=== PATIENT | female | born 2000 | race Two or more races ===

== ENCOUNTER 2025-04-17 18:15 | Inpatient (IN) | payer MEDICAID, OTHER ==
[~2025-04-17] VITALS: Ht 152.4 cm; Wt 46.9 kg
[2025-04-17] MEDS ORDERED: ACETAMINOPHEN 325 MG TAB PO PRN (19:45)
[2025-04-17] MEDS ORDERED: NITROGLYCERIN 0.4 MG SL TAB SL PRN (19:45)
[2025-04-17] MEDS ORDERED: MORPHINE SULFATE INJ 2 MG/ml SYRG IV PRN (19:45)
[2025-04-17 20:45] VITALS: PULSE 77
[2025-04-17 21:00] VITALS: BP 123/78; PULSE 83; RESP 20; TEMP 97.8; O2SAT 96
[2025-04-17 21:14] LABS: Lipase 34.0 U/L (12-53)
[2025-04-17 21:16] LABS: Amylase 35.0 U/L (30-118)
--- NOTE | 2025-04-17 23:07 | DVHHP2 ---
Admitting Diagnosis: Confused mental status Severe hypovolemia Syncope Possible urinary tract infection History of Present Illness 24-year-old young [place] female previously healthy is directly admitted for further eval and management of symptom complex of syncope x2, intermittent spells Confused mental status, profound generalized weakness, hypovolemia and significant Weight loss or pure of past two weeks. As per patient and family, she was at normal state of physical and mental health Her measured body weight was 105 lbs by first week of March 2025. She was noted to be under stress as she has started resuming research and MCAT study. As a result, her oral intake of calories and fluid significantly reduced with loss of body weight 10 lbs. Over past 10 days, she was noted to have two episodes of syncope preceded by pre monitory symptoms of feeling wooziness/ ? Palpitation. No accompanying symptoms tonic-clonic seizures, tongue bite, foaming /froth at mouth. Lacerated wound injuries. She reported her anxiety/about her prospects and experiences symptoms of insomnia. While during conversation with her parents in person as well as face time, she was noted to have starring spells lasting for 30-40 secs. She appeared to this spell bound, involuntarily raising her eyeballs and eyebrows. Lately, noted to have auditory and visual hallucinations-stating, " somebody is going to kill her." She avoids watching TV shows and phone calls. Gets afraid from cell phone Ringers- getting paranoid about life-threatening scenario. She was assessed by psychologist to whom she admitted her having suicidal thoughts thoughts. Her urine analysis report at PCP office was abnormal for hematuria, microalbuminuria and severe hypovolemia (micro albumin 539 mg, specific gravity 1037) In overall assessment, she appeared to have severe anxiety mixed with major depression, Profound weakness from profound weight loss and hypovolemia as well as UTI. Considering acuity of her illness/es, I recommended hospitalization for further Cardio neuro evaluation for altered mental status, new onset of seizures Past Medical History Past medical history records: Reviewed Cardiovascular history: No prior history of congenital/rheumatic valvular heart disease Respiratory history: Upper respiratory infections Gastrointestinal history: No history of gastric reflux Genitourinary history: No prior history of UTI Endocrine history: Under weight Neurology history: No prior history of seizure or syncope Psychiatric history: No known history of depression/anxiety Past Surgical History Noncontributory Social History College student, single, 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 History of smoking Cigarettes: Never History of smoking E cigarettes: Never History of smoking marijuana: Never History of drinking alcohol: Never History of substance abuse: Never Patient Family History: Hypertension G8 MOTHER G8 FATHER Allergies: Coded Allergies: NO KNOWN ALLERGIES (Unverified , 04/17/25) Home Meds No Active Prescriptions or Reported Meds Current Medications Current Medications Medications (Trade) Dose Ordered Sig/Kanchan Route PRN Reason Start Time Stop Time Status Last Admin Nitroglycerin (Ntrostat Sublingual) 0.4 mg Q5MINP PRN SL FOR CHEST PAIN 04/17/25 19:45 Morphine Sulfate 2 mg Q30M PRN IV FOR CHEST PAIN 04/17/25 19:45 Sodium Chloride 1,000 ml @ 125 mls/hr Q8H IV 04/17/25 19:45 04/18/25 17:00 DC 04/18/25 02:44 Acetaminophen (Tylenol Tablet) 325 mg Q4HP PRN PO MILD PAIN (1-3 PAIN SCALE) 04/17/25 19:45 Pantoprazole Sodium 50 ml @ 10 mls/hr Q5H IV 04/17/25 19:45 04/18/25 00:58 DC 04/17/25 23:28 Lorazepam (Ativan Inj) 0.5 mg Q6HP PRN IV ANXIETY 04/17/25 19:45 Citalopram Hydrobromide (CeleXA TABLET) 10 mg DAILY PO 04/18/25 10:00 04/18/25 09:26 Pantoprazole Sodium 50 ml @ 10 mls/hr Q5H IV 04/17/25 23:28 04/18/25 00:59 DC Pantoprazole Sodium 50 ml @ 10 mls/hr Q5H IV 04/18/25 04:28 04/18/25 16:49 Sodium Chloride 1,000 ml @ 75 mls/hr [id number] IV 04/18/25 16:30 Review of Systems Constitutional: Reports easy tiredness, denies fever chills weight loss HEENT: Denies headache/conjunctival/ENT pains or congestion, Denies hoarse voice, hearing or visual deficit Neck: Denies cervical spine local/radicular pains, denies goiters/stridor Denies stiffness spasms, reduced ROM, RS: Denies chest congestion, cough, wheezing, SOB, pleuritic chest pains CVS: Denies angina, palpitation, SOB, edema, orthopnea, PND GI: Denies loss of appetite, abdominal pains, tenderness, N/V/D, Denies melena, GI bleeding,constipation, : Reports dysuria, Denies flank pains, frequency, hematuria, Denies passing foul odor/cloudy turbid urine, nocturia MS: Denies generalized aches/pains, back pains, spasms, stiffness, Denies radicular pains, denies generalized myalgias/muscle weakness EXTs: Denies edema, rash, open wounds, discoloration, radicular pains NEURO: Reports insomnia hypersomnolence, confused mental status,? seizures Denies focal weakness or tremors/myoclonic jerks SKIN: Denies rashes or open ulcerated wound ENDOCRINE: Denies polyuria, polydipsia, denies intolerance to heat and cold HEM/LYMPH: Denies easy tiredness, bruising, lymphadenopathy ALLERGY: Denies allergic reactions Psychiatry: Denies anxiety or depression disorder Otherwise the Review of Systems is Negative as per History & Physical Interview: Yes Vital Signs Vital Signs Date Time Temp Pulse Resp B/P (MAP) Pulse Ox O2 Delivery O2 Flow Rate FiO2 04/18/25 13:00 98.8 88 16 101/62 (75) 97 98.8 04/18/25 08:00 Room Air* 0 21 Physical Exam General appearance: Short stature, underweight slim young [place] female Appears anxious, paranoid Head: Normocephalic nontraumatic Eyes: EOMI, SU, sclera nonicteric, conjunctive- pale ENT: No congestion, NSL bilateral symmetrical, oral mucosa dry Neck: Supple, carotid upstroke +2, trachea midline, JVD-3 cm, C spine- Full ROM No thyroid or lymph node , no use of sternomastoid muscle Chest: Bilateral symmetrical expansions, No costochondral tenderness Breasts: I exam - Bilateral symmetrical, Pexam - deferred Lungs: clear breath sounds all over except reduced at bases CVS: PMI- cm medial to L MCL in fifth ICS , S1- S2 NSR no S3 GI: Abdomen soft, obese, bowel sounds normoactive No focal tenderness, no rebound tenderness No hepatosplenomegaly, no mass no hernia , : No CVA tenderness, no bladder mass palpable, genitalia-NE SKIN: Turgor normal, color pink, no rash, no icterus, No varicosity, no ulcers or wounds EXTs: No edema, color pink, no rash, no ecchymosis distal pulses +2 capillary refill <2 seconds, No open wounds JOINTS; full range of motion BACK: No apparent lumbosacral spinal muscle tenderness, LYMPH NODES: No cervical, axillary or inguinal lymph nodes Neuro: Awake alert oriented 4, coherent, all cognitives- intact No pronator drift, no focal motor deficit, No focal sensory deficit, DTR +2, gait steady PSYCH: Affect mildly depressed-denies suicidal ideation SEPSIS Sepsis Screen Physician Orders Admit (04/17/25 19:45) Nitroglycerin Sublingual (Ntrostat Subli (04/17/25 19:45) Morphine Sulfate Injection (04/17/25 19:45) Stat Ekg For Chest Pain (04/17/25 19:45) Notify Md Of Changes From Base (04/17/25 19:45) Planning Advisor For 24 Hours (04/17/25 19:45) Emergency Dysrhythmia Protocol (04/17/25 19:45) Rhythm Strips Once Every Shift (04/17/25 19:45) Oxygen By Nasal Cannula (04/17/25 19:45) Full Code (04/17/25 19:45) Cardiac Diet-2gna,Lofat,Lochol (04/18/25 Breakfast) * Neurology Consult (04/17/25 19:45) * Psychiatric Consult (04/17/25 19:45) Acetaminophen Tablet (Tylenol Tablet) (04/17/25 19:45) Lorazepam 2mg/Ml Inj (Ativan Inj) (04/17/25 19:45) Urine Bacterial Culture (04/17/25 20:04) Blood Culture (04/17/25 20:04) Citalopram Tablet (Celexa Tablet) (04/18/25 10:00) Eeg Awake/Sleep/Act (04/17/25 23:05) Pantoprazole 40mg/50ml Ns Ae (Protonix) (04/18/25 04:28) Ct Head W Wo Contrast (04/18/25 09:00) Sod Chl 0.45% (Sodium Chloride 0.45% Via (04/18/25 16:30) Echo 2d Mode Cardiac Dop (04/18/25 16:24) Basic Metabolic Panel (04/19/25 07:00) Vital Signs Date Time Temp Pulse Resp B/P (MAP) Pulse Ox O2 Delivery O2 Flow Rate FiO2 04/18/25 13:00 98.8 88 16 101/62 (75) 97 98.8 04/18/25 09:00 97.9 90 18 103/70 (81) 96 97.9 04/18/25 08:00 90 18 0 Room Air* 0 21 04/18/25 01:00 97.8 87 20 121/79 (93) 96 97.8 04/17/25 21:00 97.8 83 20 123/78 (93) 96 97.8 04/17/25 20:45 77 Room Air* 0 21 Laboratory Tests Test 04/18/25 05:35 White Blood Count 7.1 10^3/uL (4.4-10.8) Medications Medications Dose Ordered Sig/Kanchan Route Start Time Stop Time Status Last Admin Dose Admin Citalopram Hydrobromide 10 mg DAILY PO 04/18/25 10:00 04/18/25 09:26 Results Labs Test 04/18/25 05:35 04/18/25 01:49 04/17/25 20:47 Range/Units White Blood Count 7.1 4.4-10.8 10^3/uL Red Blood Count 4.65 4.0-5.20 10^6/uL Hemoglobin 13.6 12.2-16.2 g/dL Hematocrit 39.0 36.0-46.0 % Mean Corpuscular Volume 83.9 80.0-100.0 fL Mean Corpuscular Hemoglobin 29.3 28.0-32.0 pg Mean Corpuscular Hemoglobin Concent 35.0 32.0-36.0 g/dL Red Cell Distribution Width 12.5 11.8-14.3 % Platelet Count 282 140-450 10^3/uL Mean Platelet Volume 7.3 6.9-10.8 fL Neutrophils (%) (Auto) 56.7 37.0-80.0 % Lymphocytes (%) (Auto) 34.0 10.0-50.0 % Monocytes (%) (Auto) 7.6 0.0-12.0 % Eosinophils (%) (Auto) 1.0 0.0-7.0 % Basophils (%) (Auto) 0.7 0.0-2.0 % Neutrophils # (Auto) 4.0 1.6-8.6 10 ^3/uL Lymphocytes # (Auto) 2.4 0.4-5.4 10 ^3/uL Monocytes # (Auto) 0.5 0-1.3 10 ^3/uL Eosinophils # (Auto) 0.1 0-0.8 10 ^3/uL Basophils # (Auto) 0 0-0.2 10 ^3/uL Nucleated Red Blood Cells 0.1 % Sodium Level 139 136-145 mmol/L Potassium Level 3.8 3.5-5.1 mmol/L Chloride Level 105 98-107 mmol/L Carbon Dioxide Level 25 20-31 mmol/L Anion Gap 9 5-15 Blood Urea Nitrogen 6 L 9-23 mg/dL Creatinine 0.78 0.550-1.02 mg/dL Glomerular Filtration Rate Calc 110 >90 mL/min BUN/Creatinine Ratio 7.7 L 10.0-20.0 Serum Glucose 90 74-106 mg/dL Calcium Level 8.9 8.7-10.4 mg/dL Total Bilirubin 0.6 0.2-1.0 mg/dL Aspartate Amino Transferase (AST) 16 13-40 U/L Alanine Aminotransferase (ALT) 12 7-40 U/L Alkaline Phosphatase 60 46-116 U/L Total Protein 6.7 5.7-8.2 g/dL Albumin 4.2 3.2-4.8 g/dL Urine Color Colorless Yellow Urine Clarity Clear Clear Urine pH 6.0 5.0-9.0 Urine Specific [place] 1.005 1.001-1.035 Urine Protein Negative Negative Urine Ketones Negative Negative Urine Blood Negative Negative /uL Urine Nitrite Negative Negative Urine Bilirubin Negative Negative Urine Urobilinogen Normal Negative mg/dL Urine Leukocyte Esterase Negative Negative /uL Urine RBC None seen 0 - 4 /hpf Urine Microscopic WBC < 1 0-5 /HPF Urine Squamous Epithelial Cells Few <5 /hpf Urine Bacteria None seen None Seen /hpf Urine Glucose Normal Normal mg/dL Urine Test Negative Negative Urine Opiates Screen Neg NEGATIVE Urine Fentanyl Screen Neg NEGATIVE Urine Barbiturates Screen Neg NEGATIVE Urine Phencyclidine Screen Neg NEGATIVE Urine Amphetamines Screen Neg NEGATIVE Urine Benzodiazepines Screen Neg NEGATIVE Urine Cocaine Screen Neg NEGATIVE Urine Cannabinoids Screen Neg NEGATIVE Phosphorus Level 3.4 2.4-5.1 mg/dL Magnesium Level 2.2 1.6-2.6 mg/dL Ammonia 12 11-32 umol/L C-Reactive Protein High Sensitivity 0.02 <1.0 mg/dL Amylase Level 35 30-118 U/L Lipase 34 12-53 U/L Vitamin B12 Level 538 211-911 pg/mL Folic Acid 14.42 >5.38 ng/mL Thyroid Stimulating Hormone (TSH) 1.53 0.55-4.78 uIU/mL Admitting Diagnosis: Syncope a. Severe hypovolemia b. Rule out valvular heart disease Major depression with severe anxiety Profound generalized weakness from a. Severe hypovolemia Suspect new onset of absence seizures Acute gastritis Possible Urinary tract infection Plan Admit to telemetry IV hydration IV lorazepam IV Protonix Celexa Psychiatric consult Neurology consult MISTY LAZCANO MD Apr 17, 2025 23:07
[2025-04-17] MEDS: SODIUM PHOSPHATES 20 MEQ in SODIUM CHL 0.9% 100 ML IV ONE (23:15)
[2025-04-17] MEDS: PANTOPRAZOLE 40mg/50ML NS AE 50 ML IV SCH (23:28)
[2025-04-17] MEDS ORDERED: PANTOPRAZOLE 40mg/50ML NS AE 50 ML IV SCH (23:28)
[2025-04-17] MEDS: LORazepam 2MG/ML-1ML VIAL IV ONE (23:29)
[2025-04-18] VITALS (7 sets, daily range): BP systolic 101–121; BP diastolic 62–81; PULSE 82–100; RESP 14–20; TEMP 97.8–99.1; O2SAT 0–97
[2025-04-18 00:05] LABS: Alanine Aminotransferase 12 U/L (7-40); Albumin 4.5 g/dL (3.2-4.8); Alkaline Phosphatase 65 U/L (46-116); Anion Gap 10 (5-15); BUN/Creatinine Ratio 8.2 (10.0-20.0); Bilirubin, Total 0.3 mg/dL (0.2-1.0); Calcium 9.2 mg/dL (8.7-10.4); Carbon Dioxide 22 mmol/L (20-31); Chloride 105 mmol/L (98-107); Glucose 95 mg/dL (74-106); Potassium 3.9 mmol/L (3.5-5.1); Sodium 137 mmol/L (136-145); Total Protein 7.2 g/dL (5.7-8.2)
[2025-04-18 00:06] LABS: Blood Urea Nitrogen 6 mg/dL (9-23)
[2025-04-18] MEDS: SOD CHL 0.45% 1,000 ML IV SCH ×2 (02:44→16:30)
[2025-04-18 02:45] LABS: Urine Protein, UAD Negative (Negative)
[2025-04-18 03:04] LABS: Amphetamine Screen, Urine Neg (NEGATIVE); Barbiturate Scree,Urine Neg (NEGATIVE); Benzodiazephine Screen, Urine Neg (NEGATIVE); Cannabinoid Screen, Urine Neg (NEGATIVE); Cocaine Screen, Urine Neg (NEGATIVE); Opiate Scree,Urine Neg (NEGATIVE); Phencyclidine Screen, Urine Neg (NEGATIVE)
[2025-04-18] MEDS: PANTOPRAZOLE 40mg/50ML NS AE 50 ML IV SCH (04:22)
[2025-04-18 06:47] LABS: Hematocrit 39.0 % (36.0-46.0); Hemoglobin 13.6 g/dL (12.2-16.2); Mean Corpuscular Hemoglobin 29.3 pg (28.0-32.0); Mean Corpuscular Volume 83.9 fL (80.0-100.0); Nucleated Red Blood Cells % 0.1 %
[2025-04-18 07:07] LABS: Alanine Aminotransferase 12 U/L (7-40); Albumin 4.2 g/dL (3.2-4.8); Alkaline Phosphatase 60 U/L (46-116); Anion Gap 9 (5-15); BUN/Creatinine Ratio 7.7 (10.0-20.0); Bilirubin, Total 0.6 mg/dL (0.2-1.0); Calcium 8.9 mg/dL (8.7-10.4); Carbon Dioxide 25 mmol/L (20-31); Chloride 105 mmol/L (98-107); Glucose 90 mg/dL (74-106); Potassium 3.8 mmol/L (3.5-5.1); Sodium 139 mmol/L (136-145); Total Protein 6.7 g/dL (5.7-8.2)
[2025-04-18 07:14] LABS: Blood Urea Nitrogen 6 mg/dL (9-23)
[2025-04-18] MEDS: CITALOPRAM HYDROBR 20 MG TAB PO SCH (09:26)
[2025-04-18] MEDS ORDERED: IOHEXOL 300 MG/ML 100ML BOTTLE IJ ONE (12:12)
--- NOTE | 2025-04-18 12:55 | DVH ---
EXAM: CT HEAD W WO CONTRAST INDICATION: AMS MASS OR TUMOR TECHNIQUE: CT of the head without intravenous contrast. Radiation Dose Information: CT Dose: CTDI volume is 54.45 mGy. Dose-length product is 1708.16 mGy*cm The dose indicators for CT are the volume Computed Tomography (CT) Dose Index (CTDIvol) and the Dose Length Product (DLP), and are measured in units of mGy and mGy-cm, respectively. These indicators are not patient dose, but values generated from the CT scanner acquisition factors. The report includes radiation exposure data for exposures received during this examination. COMPARISON: None FINDINGS: There is no evidence of acute intracranial hemorrhage, extra-axial collection, mass effect, midline s hift, herniation or hydrocephalus. The ventricles, sulci and cisterns are age appropriate. The dasilva-white differentiation is intact. Patchy periventricular and subcortical white matter hypoattenuation is nonspecific but may be related to small vessel ischemic disease. The visualized paranasal sinuses and mastoid air cells are clear. The surrounding soft tissues and osseous structures are unremarkable. IMPRESSION: No acute intracranial abnormality.
--- NOTE | 2025-04-18 18:11 | DVHPN2 ---
Progress Note - Dictate Date Seen: Apr 18, 2025 Subjective The patient is currently being evaluated and treated for intermittent spells of confusion mental status, syncope and hypovolemia * Apparently patient had 1-2 episode of staring spell last night as well as One more episode this morning. She feels well rested in last 24 hours Her oral intake of calorie and fluids has slightly improved She appears more awake alert oriented x3, feels relatively more comfortable And interactive. Her father reports her to have auditory hallucinations this morning * Patient received CT head with contrast-rules out mass seizures * She received EEG results of which is pending * She is awaiting to receive neurology consult * Also discussed with tele psychiatrist vital signs Vital Sign Date Time Temp Pulse Resp B/P (MAP) Pulse Ox O2 Delivery O2 Flow Rate FiO2 04/18/25 13:00 98.8 88 16 101/62 (75) 97 98.8 04/18/25 08:00 Room Air* 0 21 medications Current Medications Medications Dose Ordered Sig/Kanchan Route Start Time Stop Time Status Last Admin Dose Admin Nitroglycerin 0.4 mg Q5MINP PRN SL 04/17/25 19:45 Morphine Sulfate 2 mg Q30M PRN IV 04/17/25 19:45 Acetaminophen 325 mg Q4HP PRN PO 04/17/25 19:45 Lorazepam 0.5 mg Q6HP PRN IV 04/17/25 19:45 Citalopram Hydrobromide 10 mg DAILY PO 04/18/25 10:00 04/18/25 09:26 Pantoprazole Sodium 50 ml @ 10 mls/hr Q5H IV 04/18/25 04:28 04/18/25 16:49 Sodium Chloride 1,000 ml @ 75 mls/hr [id number] IV 04/18/25 16:30 laboratory and microbiology Laboratory Tests 04/18/25 05:35 Test 04/18/25 05:35 Range/Units Serum Glucose 90 74-106 mg/dL Problem List 1. Confused mental status a. Severe anxiety mixed with depression 2. Severe hypovolemia and profound generalized weakness 3. Syncope 4. Acute gastritis Assessment/Plan IV fluids IV Protonix Celexa 10 mg p.o. daily Lorazepam 0.5 mg slow IV push q.6 hours p.r.n. severe anxiety VTE precautions Update patient The patient and/or family is well informed by me about 1. Clinical impression, treatment plans, side effects of medications, course of the disease and prognosis 2. All patient's question/ concerns raised by patient are satisfactorily addressed by me Total time spent 45 minutes 40% of time spent interviewing the patient and physical exam 30% of time spent in gathering lab datas and imaging studies 30 % of time is spent in patient education MISTY LAZCANO MD Apr 18, 2025 18:11
--- NOTE | 2025-04-18 20:16 | DVHINCON2 ---
Date of service: Apr 18, [address] Fay Reason for Consultation AMS History of Present Illness Ms. Fowler is a 24 years old right-handed female otherwise healthy, the patient was admitted to the [facility] on 04/17/2025 with a chief complaint of syncopal event. At this time, she is alert, oriented x3, but is a poor historian, most of the history was obtained from her father, I have also reviewed chart and talked to her nurse After graduating from her college in December 2024, the patient was working on her MCAT for medical school, but meanwhile she was involved in the research project where she had problem with the team, and he was over home and stressed out. On 04/10/25, when she was standing, she developed dizziness/lightheadedness, hot flash, blurry vision, nausea, chest pain, she fell down and passed out for 15-20 seconds, on waking up, she had nausea in the lot of sweating, he recognize the place, and what she was going on before she passed out, but she had difficulty to recognize people around her On 04/11/2025, when she resting in bed (she [place] and she stayed with her uncle), she demanded seeing her parents, and her parents started to this time with her, and during the face timing, without dizziness any other warning symptoms, the patient suddenly pass out with eyes open, nonresponsiveness for about 10-15 seconds, she suddenly woke up, was able to recognize people, the place and what was going on Recently she has lost 10 chino, but she claimed she had good appetite Tele psych consultation attempted on 04/18/25, but the patient did not talked to the doctor Urinalysis, 04/18/2025: Unremarkable Urine tests, 04/18/2025: Negative UDS, 04/18/2025: Negative CBC, 04/18/2025: Unremarkable CMP, 04/18/2025: Unremarkable Vitamin B12, 04/17/2025: 538 Folic acid, 04/17/2025: 14.42 TSH, 04/17/2025: 1.53 CT head, 04/18/2025: No acute intracranial abnormality. Past Medical History No anxiety, depression or other major medical problems Past Surgical History None Family History: Hypertension G8 MOTHER G8 FATHER Family History Hypertension, coronary artery disease, heart attack, stroke, no anxiety, no depression Social History She denies a history of tobacco smoking, drug/alcohol abuse Allergies: Coded Allergies: NO KNOWN ALLERGIES (Unverified , 04/17/25) Home Meds No Active Prescriptions or Reported Meds Current Medications Current Medications Medications (Trade) Dose Ordered Sig/Kanchan Route PRN Reason Start Time Stop Time Status Last Admin Citalopram Hydrobromide (CeleXA TABLET) 10 mg DAILY PO 04/18/25 10:00 04/18/25 09:26 Pantoprazole Sodium 50 ml @ 10 mls/hr Q5H IV 04/17/25 23:28 04/18/25 00:59 DC Pantoprazole Sodium 50 ml @ 10 mls/hr Q5H IV 04/18/25 04:28 04/18/25 16:49 Sodium Chloride 1,000 ml @ 75 mls/hr [id number] IV 04/18/25 16:30 04/18/25 16:30 Review of Systems As above, the other systems are negative Vital Signs Vital Signs Date Time Temp Pulse Resp B/P (MAP) Pulse Ox O2 Delivery O2 Flow Rate FiO2 04/18/25 17:00 99.1 82 14 114/81 (92) 97 99.1 04/18/25 08:00 Room Air* 0 21 Physical Exam GENERAL EXAM: General: the patient is well developed and nourished. No acute distress. HEENT: Normocephalic, neck is supple, no carotid bruits. No mass. RESPIRATORY: Normal respiratory effort with symmetrical lung expansion. Lungs clear to auscultation. CARDIOVASCULAR: Regular rate and rhythm with no murmurs. S1, S2. ABDOMEN: Soft, nontender, normal bowel sound NEUROLOGICAL: MENTAL STATUS: Awake and alert. Oriented to person, place, time SPEECH, LANGUAGE, HIGHER CORTICAL FUNCTION: no aphasia or dysathria. CRANIAL NERVES: #2: Intact visual blackburn to confrontation. The optic discs were sharp #3,4,6: Pupils are equal, round and reactive. EOMs full and conjugate. No nystagmus. #5: Facial sensation intact in all three divisions bilaterally. Mandibular strength intact. #7: Facial muscles symmetrical and strength intact. #8: Hearing grossly normal to voice. #9,10: Uvula and soft palate rise in the midline. Swallow and voice are normal. #11: Trapezius and sternomastoid strength intact bilaterally. #12: Tongue midline. No fasciculations or atrophy. SENSATION: Sensation to touch and pinprick is normal. MOTOR: Normal tone in the upper and lower extremity. Normal muscle bulk. No fasciculations. No abnormal movements or posturing. Muscle strength of the major groups in the upper extremities is 5/5. Muscle strength of the major groups in the lower extremities is 5/5. REFLEXES: Deep tendon reflexes normal and symmetrical. No pathological reflexes. CEREBELLAR/COORDINATION: Finger to nose and heel to matthew are normal bilaterally. GAIT/STATION: deferred Labs/Diagnostic Data Labs Test 04/18/25 05:35 04/18/25 01:49 04/17/25 20:47 Range/Units White Blood Count 7.1 4.4-10.8 10^3/uL Red Blood Count 4.65 4.0-5.20 10^6/uL Hemoglobin 13.6 12.2-16.2 g/dL Hematocrit 39.0 36.0-46.0 % Mean Corpuscular Volume 83.9 80.0-100.0 fL Mean Corpuscular Hemoglobin 29.3 28.0-32.0 pg Mean Corpuscular Hemoglobin Concent 35.0 32.0-36.0 g/dL Red Cell Distribution Width 12.5 11.8-14.3 % Platelet Count 282 140-450 10^3/uL Mean Platelet Volume 7.3 6.9-10.8 fL Neutrophils (%) (Auto) 56.7 37.0-80.0 % Lymphocytes (%) (Auto) 34.0 10.0-50.0 % Monocytes (%) (Auto) 7.6 0.0-12.0 % Eosinophils (%) (Auto) 1.0 0.0-7.0 % Basophils (%) (Auto) 0.7 0.0-2.0 % Neutrophils # (Auto) 4.0 1.6-8.6 10 ^3/uL Lymphocytes # (Auto) 2.4 0.4-5.4 10 ^3/uL Monocytes # (Auto) 0.5 0-1.3 10 ^3/uL Eosinophils # (Auto) 0.1 0-0.8 10 ^3/uL Basophils # (Auto) 0 0-0.2 10 ^3/uL Nucleated Red Blood Cells 0.1 % Sodium Level 139 136-145 mmol/L Potassium Level 3.8 3.5-5.1 mmol/L Chloride Level 105 98-107 mmol/L Carbon Dioxide Level 25 20-31 mmol/L Anion Gap 9 5-15 Blood Urea Nitrogen 6 L 9-23 mg/dL Creatinine 0.78 0.550-1.02 mg/dL Glomerular Filtration Rate Calc 110 >90 mL/min BUN/Creatinine Ratio 7.7 L 10.0-20.0 Serum Glucose 90 74-106 mg/dL Calcium Level 8.9 8.7-10.4 mg/dL Total Bilirubin 0.6 0.2-1.0 mg/dL Aspartate Amino Transferase (AST) 16 13-40 U/L Alanine Aminotransferase (ALT) 12 7-40 U/L Alkaline Phosphatase 60 46-116 U/L Total Protein 6.7 5.7-8.2 g/dL Albumin 4.2 3.2-4.8 g/dL Urine Color Colorless Yellow Urine Clarity Clear Clear Urine pH 6.0 5.0-9.0 Urine Specific [place] 1.005 1.001-1.035 Urine Protein Negative Negative Urine Ketones Negative Negative Urine Blood Negative Negative /uL Urine Nitrite Negative Negative Urine Bilirubin Negative Negative Urine Urobilinogen Normal Negative mg/dL Urine Leukocyte Esterase Negative Negative /uL Urine RBC None seen 0 - 4 /hpf Urine Microscopic WBC < 1 0-5 /HPF Urine Squamous Epithelial Cells Few <5 /hpf Urine Bacteria None seen None Seen /hpf Urine Glucose Normal Normal mg/dL Urine Test Negative Negative Urine Opiates Screen Neg NEGATIVE Urine Fentanyl Screen Neg NEGATIVE Urine Barbiturates Screen Neg NEGATIVE Urine Phencyclidine Screen Neg NEGATIVE Urine Amphetamines Screen Neg NEGATIVE Urine Benzodiazepines Screen Neg NEGATIVE Urine Cocaine Screen Neg NEGATIVE Urine Cannabinoids Screen Neg NEGATIVE Phosphorus Level 3.4 2.4-5.1 mg/dL Magnesium Level 2.2 1.6-2.6 mg/dL Ammonia 12 11-32 umol/L C-Reactive Protein High Sensitivity 0.02 <1.0 mg/dL Amylase Level 35 30-118 U/L Lipase 34 12-53 U/L Vitamin B12 Level 538 211-911 pg/mL Folic Acid 14.42 >5.38 ng/mL Thyroid Stimulating Hormone (TSH) 1.53 0.55-4.78 uIU/mL Assessment Passing out event Syncope Rule out partial complex seizure, less likely Anxiety Plan/Recommendation Monitoring Supportive treatment Telemetry EEG reports MR brain scan Citalopram 10 mg daily Ativan p.r.n. for anxiety attack More recommendation per clinical course Prognosis: Poor This medical document was created using an electronic medical record system with [employer] dictation system. Although this document has been carefully reviewed, there may still be some phonetic and typographical errors. These areas are purely typographical due to imperfections of the software programs, and do not reflect any compromise in the patient's medical care. Plan discussed with: Patient, Other LAURIE JENKINS MD Apr 18, 2025 20:16
[2025-04-18] MEDS: LORazepam 2MG/ML-1ML VIAL IV PRN (22:54)
[2025-04-19] VITALS (7 sets, daily range): BP systolic 104–116; BP diastolic 66–82; PULSE 79–95; RESP 17–20; TEMP 98.7–99.6; O2SAT 0–100
--- NOTE | 2025-04-19 04:05 | DVHINCON2 ---
Date of Service if different f: Apr 18, 2025 Time of Service: 18:00 Consultation ([facility]) Consulting Physician: KELLY MUNOZ MD Labs Laboratory Tests Test 04/17/25 20:47 04/18/25 01:49 04/18/25 05:35 Phosphorus Level 3.4 mg/dL (2.4-5.1) Magnesium Level 2.2 mg/dL (1.6-2.6) Ammonia 12 umol/L (11-32) C-Reactive Protein High Sensitivity 0.02 mg/dL (<1.0) Amylase Level 35 U/L (30-118) Lipase 34 U/L (12-53) Vitamin B12 Level 538 pg/mL (211-911) Folic Acid (LAB) 14.42 ng/mL (>5.38) Thyroid Stimulating Hormone (TSH) 1.53 uIU/mL (0.55-4.78) Urine Color Colorless (Yellow) Urine Clarity Clear (Clear) Urine pH 6.0 (5.0-9.0) Urine Specific [place] 1.005 (1.001-1.035) Urine Protein Negative (Negative) Urine Ketones Negative (Negative) Urine Blood Negative /uL (Negative) Urine Nitrite Negative (Negative) Urine Bilirubin Negative (Negative) Urine Urobilinogen Normal mg/dL (Negative) Urine Leukocyte Esterase Negative /uL (Negative) Urine RBC None seen /hpf (0 - 4) Urine Microscopic WBC < 1 /HPF (0-5) Urine Squamous Epithelial Cells Few /hpf (<5) Urine Bacteria None seen /hpf (None Seen) Urine Glucose Normal mg/dL (Normal) Urine Test Negative (Negative) Urine Opiates Screen Neg (NEGATIVE) Urine Fentanyl Screen Neg (NEGATIVE) Urine Barbiturates Screen Neg (NEGATIVE) Urine Phencyclidine Screen Neg (NEGATIVE) Urine Amphetamines Screen Neg (NEGATIVE) Urine Benzodiazepines Screen Neg (NEGATIVE) Urine Cocaine Screen Neg (NEGATIVE) Urine Cannabinoids Screen Neg (NEGATIVE) White Blood Count 7.1 10^3/uL (4.4-10.8) Red Blood Count 4.65 10^6/uL (4.0-5.20) Hemoglobin 13.6 g/dL (12.2-16.2) Hematocrit 39.0 % (36.0-46.0) Mean Corpuscular Volume 83.9 fL (80.0-100.0) Mean Corpuscular Hemoglobin 29.3 pg (28.0-32.0) Mean Corpuscular Hemoglobin Concent 35.0 g/dL (32.0-36.0) Red Cell Distribution Width 12.5 % (11.8-14.3) Platelet Count 282 10^3/uL (140-450) Mean Platelet Volume 7.3 fL (6.9-10.8) Neutrophils (%) (Auto) 56.7 % (37.0-80.0) Lymphocytes (%) (Auto) 34.0 % (10.0-50.0) Monocytes (%) (Auto) 7.6 % (0.0-12.0) Eosinophils (%) (Auto) 1.0 % (0.0-7.0) Basophils (%) (Auto) 0.7 % (0.0-2.0) Neutrophils # (Auto) 4.0 10 ^3/uL (1.6-8.6) Lymphocytes # (Auto) 2.4 10 ^3/uL (0.4-5.4) Monocytes # (Auto) 0.5 10 ^3/uL (0-1.3) Eosinophils # (Auto) 0.1 10 ^3/uL (0-0.8) Basophils # (Auto) 0 10 ^3/uL (0-0.2) Nucleated Red Blood Cells 0.1 % Sodium Level 139 mmol/L (136-145) Potassium Level 3.8 mmol/L (3.5-5.1) Chloride Level 105 mmol/L (98-107) Carbon Dioxide Level 25 mmol/L (20-31) Anion Gap 9 (5-15) Blood Urea Nitrogen 6 mg/dL (9-23) Creatinine 0.78 mg/dL (0.550-1.02) Glomerular Filtration Rate Calc 110 mL/min (>90) BUN/Creatinine Ratio 7.7 (10.0-20.0) Serum Glucose 90 mg/dL (74-106) Calcium Level 8.9 mg/dL (8.7-10.4) Total Bilirubin 0.6 mg/dL (0.2-1.0) Aspartate Amino Transf (AST/SGOT) 16 U/L (13-40) Alanine Aminotransferase (ALT/SGPT) 12 U/L (7-40) Alkaline Phosphatase 60 U/L (46-116) Total Protein 6.7 g/dL (5.7-8.2) Albumin 4.2 g/dL (3.2-4.8) Microbiology Date/Time Source Procedure Growth Status 04/17/25 20:46 Blood Blood Culture - Preliminary NO GROWTH AFTER 24 HOURS OF INCUBATION. Resulted Vitals Vital Signs Date Time Temp Pulse Resp B/P (MAP) Pulse Ox O2 Delivery O2 Flow Rate FiO2 04/18/25 21:00 97.9 91 18 109/78 (88) 97 97.9 04/18/25 20:00 Room Air* 0 21 Current medications Current Medications Medications Dose Ordered Sig/Kanchan Route Start Time Stop Time Status Last Admin Dose Admin Nitroglycerin 0.4 mg Q5MINP PRN SL 04/17/25 19:45 Morphine Sulfate 2 mg Q30M PRN IV 04/17/25 19:45 Acetaminophen 325 mg Q4HP PRN PO 04/17/25 19:45 Lorazepam 0.5 mg Q6HP PRN IV 04/17/25 19:45 04/18/25 22:54 0.5 MG Citalopram Hydrobromide 10 mg DAILY PO 04/18/25 10:00 04/18/25 09:26 10 MG Pantoprazole Sodium 50 ml @ 10 mls/hr Q5H IV 04/18/25 04:28 04/19/25 03:17 10 MLS/HR Sodium Chloride 1,000 ml @ 75 mls/hr [id number] IV 04/18/25 16:30 04/18/25 16:30 75 MLS/HR Lorazepam 1 mg ONCE PRN IV 04/18/25 21:00 PSYCHIATRY CONSULTATION INITIAL EVALUATION REASON FOR CONSULT: Severe anxiety HPI: Patient is a young woman admitted for evaluation of severe anxiety and abnormal behaviors. She is alert and oriented to person, place, date, and reason for hospitalization, though she provides limited detail about her condition. She reports longstanding anxiety and states she has not been feeling well. 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 Collateral information from her uncle indicates she had been living in [place] preparing for medical school entrance exams and was under significant stress. Over the past week, she experienced behavioral changes, including withdrawal and difficulty communicating. 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 Since admission, she has exhibited staring spells and reduced responsiveness. Yesterday she was largely withdrawn and only able to give brief, one-word responses. Today she continues to appear slowed with episodes of staring and dry heaving throughout the exam. She slept well last night after receiving Ativan, and her father estimates her condition has improved by about 70% since hospitalization. Workup thus far includes a normal CT head; EEG has been obtained but not yet read. Neurology consultation is pending. Patient denies suicidal ideation, homicidal ideation, or access to firearms. She denies substance use; UDS and BAL were negative. PSYCHIATRIC HISTORY: DIAGNOSIS: None prior ADMISSIONS: None prior MEDICATION TRIALS: None prior OUTPATIENT CARE: None prior THERAPY: None prior SI/SELF-INJURY/SUICIDE ATTEMPT: Per above. SUBSTANCE USE: No use of drugs or alcohol. UDS and BAL negative. RELEVANT MEDICAL HISTORY: No chronic conditions. 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 At times, she appears to be staring blankly into space. She demonstrates episodes of dry heaving throughout the interview. Affect is blunted overall, though she intermittently shows a wider range and smiles occasionally. Speech is markedly impoverished, requiring repeated prompting to respond, with increased latency in answering questions. Mood is described only as anxious. Thought processes are difficult to assess due to limited speech but appear goal-directed when she does respond. She denies hallucinations or delusions. She is alert and oriented to person, place, time, and situation. Insight is limited, judgment is fair, and impulse control is fair. DIFFERENTIAL DIAGNOSIS: Catatonia (given staring, motor slowing, decreased speech, improved with Ativan) Major depressive episode with catatonic features Severe anxiety disorder with functional impairment Psychotic spectrum illness (early or attenuated presentation) Neurologic disorder (seizure, postictal state, other organic etiology) Delirium (though orientation intact and course subacute) ASSESSMENT: This is a young woman with no prior psychiatric history presenting with acute behavioral changes, anxiety, withdrawal, and catatonic-like features. Symptoms include staring spells, motor slowing, dry heaving, impoverished speech, and increased latency. She has shown partial improvement with Ativan, suggesting possible catatonia. Given her limited ability to care for herself and markedly impaired functioning, she currently meets criteria for grave disability. Given the acuity of presentation, limited insight, and impaired ability to engage in outpatient care safely, involuntary psychiatric hospitalization is indicated for further evaluation and treatment. Continued medical workup, including neurology consultation, remains essential to rule out underlying neurologic or metabolic contributors. RECOMMENDATIONS: 1. Legal - Initiate 5150 hold for grave disability. - Place patient on 1799 hold until 5150 can be completed by [facility]-designated staff (valid for 24 hours, renewable for another 24 hours). 2. Disposition - Transfer to inpatient psychiatry for further evaluation and management once medically cleared. 3. Medications - Continue standing Ativan (given improvement with benzodiazepine trial). - Defer initiation or resumption of other psychotropic medications at this time pending further psychiatric evaluation. 4. Medical Considerations - Complete medical workup to rule out contributory conditions. - Neurology consultation recommended (evaluate for seizure disorder, abnormal movements, or other neurologic contributors). - Review EEG results once available. 5. Other - Continue close observation for safety. - Provide support to family and ongoing communication regarding plan of care. - Once patient is discharged from inpatient psychiatry, she should initiate outpatient mental health care including psychotherapy. KELLY MUNOZ MD Apr 19, 2025 04:05
[2025-04-19 06:52] LABS: Anion Gap 7 (5-15); Carbon Dioxide 26 mmol/L (20-31); Chloride 107 mmol/L (98-107); Potassium 4.1 mmol/L (3.5-5.1); Sodium 140 mmol/L (136-145)
[2025-04-19 06:54] LABS: Calcium 9.2 mg/dL (8.7-10.4)
[2025-04-19 06:58] LABS: BUN/Creatinine Ratio 9.3 (10.0-20.0); Glucose 90 mg/dL (74-106)
[2025-04-19 07:00] LABS: Blood Urea Nitrogen 8 mg/dL (9-23)
[2025-04-19] MEDS: LORazepam 2MG/ML-1ML VIAL IV PRN (14:11)
--- NOTE | 2025-04-19 15:07 | DVHSR ---
APPROVED REPORT EXAM: Two-dimensional and M-mode echocardiogram with Doppler and color Doppler. Blood Pressure: 116/82 mmHg INDICATION Syncope R/O MVP RISK FACTORS Height: 5' , Weight: 104 DIMENSIONS LVDd4.1 (3.8-5.7cm)LA (2D)2.6 (1.9-4.0cm)Aortic Root2.3 (2.0-3.7cm) LVDs2.5 (2.5-4.0cm)LA (MM) (1.9-4.0cm)Aortic Cusp Exc1.4 (1.5-2.0cm) EF (%) 70.0 (55-70%)Rt. Atrium2.7 (1.9-4.0cm)Asc. Aorta cm IVSd0.6 (0.7-1.1cm)RV (D) (1.8-2.4cm) PWd0.6 (0.7-1.1cm) Mitral Valve MitralMitral Stenosis E wave0.90m/sMV Mean GR.mmHg A wave0.70m/sMV Peak GR.mmHg E/A ratio1.32D MVAcm2 Aortic Valve Aortic ValveAortic Stenosis V10.80m/Meredith Mean GR.3mmHg V21.20m/Meredith Peak GR.7mmHg LVOT Diameter1.6 (1.8-2.4cm)Doppler AVA1.34cm2 Pulmonic Valve V20.70m/s Conclusion Sinus rhythm. Normal chamber sizes. Valves are normal. Left ventricular function is preserved at 60% with normal RV function. No Doppler anomalies. No pericardial effusion masses or vegetations.
--- NOTE | 2025-04-19 23:32 | DVHPN2 ---
Progress Note - Dictate Date Seen: Apr 19, 2025 Medical Necessity Reason Pt with a Central, PICC or Fol: No Subjective Ms. Fowler is a 24 years old right-handed female otherwise healthy, the patient was admitted to the [facility] on 04/17[facility]2025 with a chief complaint of syncopal event. I have seen examined the patient, talked to her mother, the case was discussed with Dr. Gamboa She is alert, oriented, but she does not want to talk She could not have MR head done Urinalysis, 04/18/2025: Unremarkable Urine tests, 04/18/2025: Negative UDS, 04/18/2025: Negative CBC, 04/18/2025: Unremarkable CMP, 04/18/2025: Unremarkable Vitamin B12, 04/17/2025: 538 Folic acid, 04/17/2025: 14.42 TSH, 04/17/2025: 1.53 CT head, 04/18/2025: No acute intracranial abnormality. vital signs Vital Sign Date Time Temp Pulse Resp B/P (MAP) Pulse Ox O2 Delivery O2 Flow Rate FiO2 04/19/25 21:00 98.7 83 20 104/66 (79) 98 98.7 04/19/25 20:00 Room Air* 0 21 Total Intake and Output 04/18/25 04/18/25 04/19/25 15:00 23:00 07:00 Intake Total 720 ml 1100 ml Balance 720 ml 1100 ml medications Current Medications Medications Dose Ordered Sig/Kanchan Route Start Time Stop Time Status Last Admin Dose Admin Nitroglycerin 0.4 mg Q5MINP PRN SL 04/17/25 19:45 Morphine Sulfate 2 mg Q30M PRN IV 04/17/25 19:45 Acetaminophen 325 mg Q4HP PRN PO 04/17/25 19:45 Lorazepam 0.5 mg Q6HP PRN IV 04/17/25 19:45 04/18/25 22:54 0.5 MG Citalopram Hydrobromide 10 mg DAILY PO 04/18/25 10:00 04/19/25 09:18 10 MG Pantoprazole Sodium 50 ml @ 10 mls/hr Q5H IV 04/18/25 04:28 04/19/25 22:50 10 MLS/HR Sodium Chloride 1,000 ml @ 75 mls/hr [id number] IV 04/18/25 16:30 04/18/25 16:30 75 MLS/HR Lorazepam 1 mg ONCE PRN IV 04/18/25 21:00 04/19/25 14:11 1 MG objective General: the patient is well developed and nourished. No acute distress. MENTAL STATUS: Awake and alert. Oriented to person, place, time SPEECH, LANGUAGE, HIGHER CORTICAL FUNCTION: no aphasia or dysathria. CRANIAL NERVES: Pupils are equal, round and reactive. EOMs full and conjugate. No nystagmus. Facial sensation intact in all three divisions bilaterally. Mandibular strength intact. Facial muscles symmetrical and strength intact. SENSATION: Sensation to touch and pinprick is normal. MOTOR: Normal tone in the upper and lower extremity. Normal muscle bulk. No fasciculations. No abnormal movements or posturing. Muscle strength of the major groups in the extremities is 5/5. REFLEXES: Deep tendon reflexes normal and symmetrical. No pathological reflexes. CEREBELLAR/COORDINATION: Finger to nose and heel to matthew are normal bilaterally. GAIT/STATION: deferred laboratory and microbiology Laboratory Tests 04/19/25 06:09 04/18/25 05:35 Test 04/19/25 06:09 Range/Units Serum Glucose 90 74-106 mg/dL Problem List Passing out event Syncope Rule out partial complex seizure, less likely Anxiety Assessment/Plan Monitoring Supportive treatment Telemetry EEG reports MR brain scan Citalopram 10 mg daily Ativan p.r.n. for anxiety attack More recommendation per clinical course This medical document was created using an electronic medical record system with [employer] dictation system. Although this document has been carefully reviewed, there may still be some phonetic and typographical errors. These areas are purely typographical due to imperfections of the software programs, and do not reflect any compromise in the patient's medical care. Prognosis poor Plan discussed with: Other Total Time (mins): 40 LAURIE JENKINS MD Apr 19, 2025 23:32
--- NOTE | 2025-04-19 23:59 | DVHPN2 ---
Progress Note - Dictate Date Seen: Apr 19, 2025 Medical Necessity Reason Pt with a Central, PICC or Fol: No Subjective The patient is currently being evaluated and treated for severe anxiety with staring spells Catatonia, Impoverished speech * Noted partial improvement with IV lorazepam * Reviewed results of 2D echo and CAT scan of the head with patient * Reviewed input of psychiatrist * EEG results are pending * Reviewed input of Dr. Mauro, neurologist * Recommended MRI of head * Discuss all these findings with patient's mom were at bedside in presence of Nurse Trang in charge nurse vital signs Vital Sign Date Time Temp Pulse Resp B/P (MAP) Pulse Ox O2 Delivery O2 Flow Rate FiO2 04/19/25 21:00 98.7 83 20 104/66 (79) 98 98.7 04/19/25 20:00 Room Air* 0 21 Total Intake and Output 04/18/25 04/18/25 04/19/25 15:00 23:00 07:00 Intake Total 720 ml 1100 ml Balance 720 ml 1100 ml medications Current Medications Medications Dose Ordered Sig/Kanchan Route Start Time Stop Time Status Last Admin Dose Admin Nitroglycerin 0.4 mg Q5MINP PRN SL 04/17/25 19:45 Morphine Sulfate 2 mg Q30M PRN IV 04/17/25 19:45 Acetaminophen 325 mg Q4HP PRN PO 04/17/25 19:45 Lorazepam 0.5 mg Q6HP PRN IV 04/17/25 19:45 04/18/25 22:54 0.5 MG Citalopram Hydrobromide 10 mg DAILY PO 04/18/25 10:00 04/19/25 09:18 10 MG Pantoprazole Sodium 50 ml @ 10 mls/hr Q5H IV 04/18/25 04:28 04/19/25 22:50 10 MLS/HR Sodium Chloride 1,000 ml @ 75 mls/hr [id number] IV 04/18/25 16:30 04/18/25 16:30 75 MLS/HR Lorazepam 1 mg ONCE PRN IV 04/18/25 21:00 04/19/25 14:11 1 MG laboratory and microbiology Laboratory Tests 04/19/25 06:09 04/18/25 05:35 Test 04/19/25 06:09 Range/Units Serum Glucose 90 74-106 mg/dL Problem List 1. Confused mental status a. Severe anxiety mixed with depression 2. Severe hypovolemia and profound generalized weakness 3. Syncope 4. Acute gastritis Assessment/Plan IV fluids IV Protonix Discontinue Celexa 10 mg p.o. daily Lorazepam 0.5 mg slow IV push q.6 hours p.r.n. severe anxiety VTE precautions Update patient The patient and/or family is well informed by me about 1. Clinical impression, treatment plans, side effects of medications, course of the disease and prognosis 2. All patient's question/ concerns raised by patient are satisfactorily addressed by me Total time spent 45 minutes 40% of time spent interviewing the patient and physical exam 30% of time spent in gathering lab datas and imaging studies 30 % of time is spent in patient education MISTY LAZCANO MD Apr 19, 2025 23:59
[2025-04-20] VITALS (8 sets, daily range): BP systolic 94–115; BP diastolic 53–78; PULSE 66–105; RESP 16–20; TEMP 98.4–98.7; O2SAT 0–98
[2025-04-20] MEDS ORDERED: LORA-1123 PO (21:59)
[2025-04-20] MEDS ORDERED: PANT40TA2 PO (21:59)
[2025-04-20] MEDS ORDERED: CALC100023 PO (21:59)
--- NOTE | 2025-04-20 22:07 | DVHPN2 ---
Progress Note - Dictate Date Seen: Apr 20, 2025 Medical Necessity Reason Pt with a Central, PICC or Fol: No Subjective The patient is currently being evaluated and treated for severe anxiety with staring spells Catatonia, Impoverished speech * Noted partial improvement with IV lorazepam * Reviewed results of 2D echo and CAT scan of the head with patient * Reviewed input of psychiatrist * EEG results are pending * Reviewed input of Dr. Mauro, neurologist * Recommended MRI of head * Discuss all these findings with patient's mom were at bedside in presence of Nurse Trang in charge nurse vital signs Vital Sign Date Time Temp Pulse Resp B/P (MAP) Pulse Ox O2 Delivery O2 Flow Rate FiO2 04/20/25 16:35 98.7 82 18 113/72 (86) 98 98.7 04/20/25 08:00 Room Air* 0 21 Total Intake and Output 04/19/25 04/19/25 04/20/25 15:00 23:00 07:00 Intake Total 750 ml 500 ml Balance 750 ml 500 ml medications Current Medications Medications Dose Ordered Sig/Kanchan Route Start Time Stop Time Status Last Admin Dose Admin Nitroglycerin 0.4 mg Q5MINP PRN SL 04/17/25 19:45 Morphine Sulfate 2 mg Q30M PRN IV 04/17/25 19:45 Acetaminophen 325 mg Q4HP PRN PO 04/17/25 19:45 Lorazepam 0.5 mg Q6HP PRN IV 04/17/25 19:45 04/18/25 22:54 0.5 MG Citalopram Hydrobromide 10 mg DAILY PO 04/18/25 10:00 04/20/25 10:34 10 MG Pantoprazole Sodium 50 ml @ 10 mls/hr Q5H IV 04/18/25 04:28 04/20/25 15:20 10 MLS/HR Sodium Chloride 1,000 ml @ 75 mls/hr [id number] IV 04/18/25 16:30 04/20/25 10:39 75 MLS/HR Lorazepam 1 mg ONCE PRN IV 04/18/25 21:00 04/19/25 14:11 1 MG laboratory and microbiology Laboratory Tests 04/19/25 06:09 04/18/25 05:35 Test 04/19/25 06:09 Range/Units Serum Glucose 90 74-106 mg/dL Problem List 1. Confused mental status a. Severe anxiety mixed with depression 2. Severe hypovolemia and profound generalized weakness 3. Syncope 4. Acute gastritis Assessment/Plan IV fluids IV Protonix Discontinue Celexa 10 mg p.o. daily Lorazepam 0.5 mg slow IV push q.6 hours p.r.n. severe anxiety VTE precautions Update patient The patient and/or family is well informed by me about 1. Clinical impression, treatment plans, side effects of medications, course of the disease and prognosis 2. All patient's question/ concerns raised by patient are satisfactorily addressed by me Total time spent 45 minutes 40% of time spent interviewing the patient and physical exam 30% of time spent in gathering lab datas and imaging studies 30 % of time is spent in patient education MISTY LAZCANO MD Apr 20, 2025 22:07
[2025-04-20] MEDS: LORazepam 0.5 MG TAB PO ONE (22:23)
--- NOTE | 2025-04-21 14:21 | DVHEEG2 ---
Neurology EEG Procedural Note Procedural Note EXAM DATE: 04/18/2025 REFERRING DOCTOR: Dr. Oh TECHNIQUE: Eighteen channels of EEG, 2 channels of EOG, and 1 channel of EKG were recorded using the [employer] 10/20 system. CLINICAL DATA: The patient was referred for an EEG evaluation for the evidence of seizure disorder. MEDICATIONS: See the chart BACKGROUND ACTIVITY: While the patient was awake, the background activity consisted of well regulated 10 Hz rhythmic waveforms, symmetrically distributed over both posterior quadrants and was reactive to eye opening. ACTIVATION: Hyperventilation: Not done Photic Stimulation: Not done Sleep: Not seen IMPRESSION: This is a normal EEG. No focal, lateralized, or epileptiform features are noted. If clinically indicated to rule out a seizure disorder, recommend repeat EEG with sleep deprivation. The EKG channel showed a regular heart rate of 90 per minute. [place] [address] LAURIE JENKINS MD Apr 21, 2025 14:21
== END 2025-04-20 22:59 | disposition home or self-care (01) | DRG 422 ==
LOC: TELE-EAST 18:57 → UNDOADMIN 18:57 → TELE-EAST 19:45
PROVIDERS: ADMIT Specialist; ATTEND Specialist
DX: E86.1 Hypovolemia (principal); R45.851 Suicidal ideations; F32.9 Major depressive disorder, single episode, unspecified; G40.909 Epilepsy, unspecified, not intractable, without status epilepticus; K29.00 Acute gastritis without bleeding; F41.9 Anxiety disorder, unspecified; Z82.49 Family history of ischemic heart disease and other diseases of the circulatory system; Z79.899 Other long term (current) drug therapy; Z82.3 Family history of stroke
CPT/HCPCS: 36415; 70470; 80048; 80053; 80307; 81001; 81025; 82140; 82150; 82607; 82746; 83690; 83735; 84100; 84443; 85025; 86141; 87040; 87086; 93306; 95819; G0378

== ENCOUNTER 2025-08-09 23:00 | Inpatient (IN) | payer MEDICAID, OTHER ==
[~2025-08-09] VITALS: Ht 152.4 cm; Wt 85.5 kg
[~2025-08-09 23:00] MED LIST: CALC100023 PO; LORA-1123 PO; PANT40TA2 PO
[2025-08-09] MEDS ORDERED: NITROGLYCERIN 0.4 MG SL TAB SL PRN (23:15)
[2025-08-09] MEDS ORDERED: MORPHINE SULFATE INJ 2 MG/ml SYRG IV PRN (23:15)
--- NOTE | 2025-08-09 23:30 | DVHHP2 ---
Admitting Diagnosis: Acute epigastric abdominal pains-rule out peptic ulcer disease/GERD -rule out acute pancreatitis History of Present Illness Ms. shaw, 24-year-old young [place] female relatively healthy Except for recently diagnosed anxiety disorder is directly admitted for further eval and management of recurrent post meal epigastric abdominal pains- burning, gnawing at 5-7 of 10 attended with nausea x 6 weeks She denies vomiting. She also reports to have been passing loose watery stools with passage of mucus-denies passing blood. Her epigastric pain has gotten worse in worse from intake of high-protein food. Lately her symptoms of epigastric pains have got worse with nocturnal frequency -wakes her up from the sleep. As per patient, she did not respond to Combination of bland diet, Protonix, Carafate and Maalox. Also noted weight loss 110 lb down to 93 lbs. She denies symptoms to anxiety or depression which she had 3 months ago Considering acuity of her illness, I recommended hospitalization for further GI evaluation Past Medical History Past medical history records: Reviewed Cardiovascular history: No prior history of congenital/rheumatic valvular heart disease Respiratory history: Upper respiratory infections Gastrointestinal history: GE reflux, acute gastritis Genitourinary history: Symptoms of primary dysmenorrhea Endocrine history: Under weight Neurology history: No prior history of seizure or syncope Psychiatric history: Recent history of depression/anxiety Past Surgical History None Social History College student, single, 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 History of smoking Cigarettes: Never History of smoking E cigarettes: Never History of smoking marijuana: Never History of drinking alcohol: Never History of substance abuse: Never Patient Family History: Hypertension G8 MOTHER G8 FATHER Allergies: Coded Allergies: NO KNOWN ALLERGIES (Unverified , 04/17/25) Home Meds Active Scripts Calcium Carbonate-Simethicone (Maalox Advanced Maximum S) 1 Chw Chw, 1 CHW PO 6XD for 50 Days, TAB.CHEW Prov:MISTY LAZCANO MD 04/20/25 Pantoprazole Sodium Sesquihydr (Protonix) 40 Mg Tab, 40 MG PO DAILY, #30 TAB Prov:MISTY LAZCANO MD 04/20/25 Lorazepam (Lorazepam) 1 Mg Tab, 0.5 TAB PO TID, #90 TAB Prov:MISTY LAZCANO MD 04/20/25 Current Medications Current Medications Medications (Trade) Dose Ordered Sig/Kanchan Route PRN Reason Start Time Stop Time Status Last Admin Nitroglycerin (Ntrostat Sublingual) 0.4 mg Q5MINP PRN SL FOR CHEST PAIN 08/09/25 23:15 Morphine Sulfate 2 mg Q30M PRN IV FOR CHEST PAIN 08/09/25 23:15 Dextrose/Lactated Ringer's 1,000 ml @ 75 mls/hr [id number] IV 08/09/25 23:15 08/10/25 01:53 Pantoprazole Sodium (Protonix) 40 mg DAILY IV 08/10/25 10:00 08/10/25 08:08 Sucralfate (Carafate Tab) 1 gm QIDACHS PO 08/10/25 07:00 08/10/25 11:32 Acetaminophen/ Hydrocodone Bitart ([place] 5/325MG Tab) 1 tab Q6HPRN PRN PO MODERATE PAIN (4-6 PAIN SCALE) 08/10/25 09:15 Review of Systems Constitutional: Reports easy tiredness, denies fever chills weight loss HEENT: Denies headache/conjunctival/ENT pains or congestion, Denies hoarse voice, hearing or visual deficit Neck: Denies cervical spine local/radicular pains, denies goiters/stridor Denies stiffness spasms, reduced ROM, RS: Denies chest congestion, cough, wheezing, SOB, pleuritic chest pains CVS: Denies angina, palpitation, SOB, edema, orthopnea, PND GI: Reports epigastric pains, nausea loss of appetite, diarrhea with passage of mucus Denies melena, GI bleeding,constipation, : Denies dysuria, Denies flank pains, frequency, hematuria, Denies passing foul odor/cloudy turbid urine, nocturia MS: Denies generalized aches/pains, back pains, spasms, stiffness, Denies radicular pains, denies generalized myalgias/muscle weakness EXTs: Denies edema, rash, open wounds, discoloration, radicular pains NEURO: Reports insomnia hypersomnolence, confused mental status,? seizures Denies focal weakness or tremors/myoclonic jerks SKIN: Denies rashes or open ulcerated wound ENDOCRINE: Denies polyuria, polydipsia, denies intolerance to heat and cold HEM/LYMPH: Reports easy tiredness, bruising, lymphadenopathy ALLERGY: Denies allergic reactions Psychiatry: Denies anxiety or depression disorder Otherwise the Review of Systems is Negative as per History & Physical Interview: Yes Vital Signs Vital Signs Date Time Temp Pulse Resp B/P (MAP) Pulse Ox O2 Delivery O2 Flow Rate FiO2 08/10/25 13:00 98.7 99 17 107/67 (80) 97 98.7 08/10/25 08:00 Room Air* 0 21 Physical Exam Vital Signs Vital Signs Date Time Temp Pulse Resp B/P (MAP) Pulse Ox O2 Delivery O2 Flow Rate FiO2 08/10/25 01:00 98.2 92 17 117/84 (95) 97 21 08/09/25 23:43 97.9 105 18 111/61 (78) 95 Room Air* 0 21 Physical Exam General appearance: Short stature, underweight slim young [place] female Appears alert oriented x3, reports epigastric pains Head: Normocephalic nontraumatic Eyes: EOMI, SU, sclera nonicteric, conjunctive- pale ENT: No congestion, NSL bilateral symmetrical, oral mucosa dry Neck: Supple, carotid upstroke +2, trachea midline, JVD-0 cm, C spine- Full ROM No thyroid or lymph node , no use of sternomastoid muscle Chest: Bilateral symmetrical expansions,No costochondral tenderness Breasts: deferred Lungs: clear breath sounds all over except reduced at bases CVS: PMI- cm medial to L MCL in fifth ICS , S1-S2 NSR no S3 GI: Abdomen soft, nonobese, bowel sounds normoactive Epigastric tenderness at R of umbilicus, no rebound tenderness No hepatosplenomegaly, no mass no hernia , : No CVA tenderness, no bladder mass palpable, genitalia-NE SKIN: Turgor normal, color pink, no rash, no icterus, No varicosity, no ulcers or wounds EXTs: No edema, color pink, no rash, no ecchymosis distal pulses +2 capillary refill <2 sec, no open wounds JOINTS: full range of motion BACK: No apparent lumbosacral spinal muscle tenderness, LYMPH NODES: No cervical, axillary or inguinal lymph nodes Neuro: Awake alert oriented 4, coherent, all cognitives- intact No pronator drift, no focal motor deficit, No focal sensory deficit, DTR +2, gait steady PSYCH: Affect mildly depressed-denies suicidal ideation SEPSIS Sepsis Screen Physician Orders Admit (08/09/25 23:07) Nitroglycerin Sublingual (Ntrostat Subli (08/09/25 23:15) Morphine Sulfate Injection (08/09/25 23:15) Stat Ekg For Chest Pain (08/09/25 23:07) Notify Md Of Changes From Base (08/09/25 23:07) Health Informatics Advisor For 24 Hours (08/09/25 23:07) Emergency Dysrhythmia Protocol (08/09/25 23:07) Rhythm Strips Once Every Shift (08/09/25 23:07) Oxygen By Nasal Cannula (08/09/25 23:07) Gastric Occult Blood (08/09/25 23:07) Stool Bacterial Culture (08/09/25 23:07) Stool Wbc (08/09/25 23:07) D5w/Lactated Ringers (D5wlr) (08/09/25 23:15) Pantoprazole (Protonix) (08/10/25 10:00) Sucralfate Tab (Carafate Tab) (08/10/25 07:00) Hepatitis B Surface Antigen (08/10/25 01:19) Hepatitis C Antibody (08/10/25 01:19) Ct Ab Pelv W Wo Con-Oral & Iv (08/10/25 08:00) Hydrocodone-Acet 5/325mg Tab ([place] 5/32 (08/10/25 09:15) Soft Diet (08/10/25 Dinner) Vital Signs Date Time Temp Pulse Resp B/P (MAP) Pulse Ox O2 Delivery O2 Flow Rate FiO2 08/10/25 13:00 98.7 99 17 107/67 (80) 97 98.7 08/10/25 09:00 98.6 87 17 108/70 (83) 98 98.6 08/10/25 08:00 87 16 98 Room Air* 0 21 08/10/25 05:00 97.7 114 18 122/87 (99) 98 97.7 08/10/25 01:00 98.2 92 18 117/84 (95) 97 98.2 08/10/25 00:48 97.9 105 18 111/61 (78) 95 97.9 08/10/25 00:48 105 18 95 Room Air* 0 08/09/25 23:43 97.9 105 18 111/61 (21) 95 97.9 Laboratory Tests Test 08/10/25 05:47 White Blood Count 5.9 10^3/uL (4.4-10.8) Medications Medications Dose Ordered Sig/Kanchan Route Start Time Stop Time Status Last Admin Dose Admin Pantoprazole Sodium 40 mg DAILY IV 08/10/25 10:00 08/10/25 08:08 Sucralfate 1 gm QIDACHS PO 08/10/25 07:00 08/10/25 11:32 Wounds Results Labs Test 08/10/25 09:13 08/10/25 08:41 08/10/25 05:47 Range/Units Urine Color Light-yellow Yellow Urine Clarity Clear Clear Urine pH 6.5 5.0-9.0 Urine Specific [place] 1.010 1.001-1.035 Urine Protein Negative Negative Urine Ketones Negative Negative Urine Blood Negative Negative /uL Urine Nitrite Negative Negative Urine Bilirubin Negative Negative Urine Urobilinogen Normal Negative mg/dL Urine Leukocyte Esterase Negative Negative /uL Urine RBC <1 0 - 4 /hpf Urine Microscopic WBC 0-5 /HPF Urine Squamous Epithelial Cells Few <5 /hpf Urine Bacteria None seen None Seen /hpf Urine Glucose Normal Normal mg/dL Urine Test Negative Negative Urine Opiates Screen Neg NEGATIVE Urine Fentanyl Screen Neg NEGATIVE Urine Barbiturates Screen Neg NEGATIVE Urine Phencyclidine Screen Neg NEGATIVE Urine Amphetamines Screen Neg NEGATIVE Urine Benzodiazepines Screen Neg NEGATIVE Urine Cocaine Screen Neg NEGATIVE Urine Cannabinoids Screen Neg NEGATIVE Stool Occult Blood Negative Negative Stool Occult Blood Sample #3 Negative Stool for White Cells None seen White Blood Count 5.9 4.4-10.8 10^3/uL Red Blood Count 4.66 4.0-5.20 10^6/uL Hemoglobin 13.4 12.2-16.2 g/dL Hematocrit 39.0 36.0-46.0 % Mean Corpuscular Volume 83.8 80.0-100.0 fL Mean Corpuscular Hemoglobin 28.8 28.0-32.0 pg Mean Corpuscular Hemoglobin Concent 34.3 32.0-36.0 g/dL Red Cell Distribution Width 12.7 11.8-14.3 % Platelet Count 250 140-450 10^3/uL Mean Platelet Volume 7.0 6.9-10.8 fL Neutrophils (%) (Auto) 47.8 37.0-80.0 % Lymphocytes (%) (Auto) 43.2 10.0-50.0 % Monocytes (%) (Auto) 6.0 0.0-12.0 % Eosinophils (%) (Auto) 2.5 0.0-7.0 % Basophils (%) (Auto) 0.5 0.0-2.0 % Neutrophils # (Auto) 2.8 1.6-8.6 10 ^3/uL Lymphocytes # (Auto) 2.6 0.4-5.4 10 ^3/uL Monocytes # (Auto) 0.4 0-1.3 10 ^3/uL Eosinophils # (Auto) 0.1 0-0.8 10 ^3/uL Basophils # (Auto) 0 0-0.2 10 ^3/uL Nucleated Red Blood Cells 0.1 % Sodium Level 142 136-145 mmol/L Potassium Level 4.1 3.5-5.1 mmol/L Chloride Level 108 H 98-107 mmol/L Carbon Dioxide Level 26 20-31 mmol/L Anion Gap 8 5-15 Blood Urea Nitrogen 8 L 9-23 mg/dL Creatinine 0.83 0.550-1.02 mg/dL Glomerular Filtration Rate Calc 102 >90 mL/min BUN/Creatinine Ratio 9.6 L 10.0-20.0 Serum Glucose 90 74-106 mg/dL Calcium Level 9.6 8.7-10.4 mg/dL Phosphorus Level 4.0 2.4-5.1 mg/dL Magnesium Level 2.1 1.6-2.6 mg/dL Total Bilirubin 0.6 0.2-1.0 mg/dL Aspartate Amino Transferase (AST) 16 13-40 U/L Alanine Aminotransferase (ALT) < 9 7-40 U/L Alkaline Phosphatase 59 46-116 U/L Total Protein 6.8 5.7-8.2 g/dL Albumin 4.2 3.2-4.8 g/dL Amylase Level 53 30-118 U/L Microbiology Date/Time Source Procedure Growth Status 08/10/25 08:41 Stool Stool Culture - Preliminary Resulted 08/10/25 08:41 Stool Shiga Toxin I & II - Final Resulted Primary Diagnosis 1. Worsening of Epigastric abdominal pains a. Peptic ulcer disease 2. Acute Colitis 3. Severe hypovolemia 4. Weight loss > 10% Admitting Diagnosis: 1. Worsening of Epigastric abdominal pains a. Suspect Peptic ulcer disease b. Failure to PPI c. Suspect acute pancreatitis 2. Acute Colitis 3. Severe hypovolemia 4. Weight loss > 10% 2' Diagnosis/Comorbidities Anxiety disorder Medical decision making Overall patient's condition appears clinically ill from recurrent epigastric abdominal pains attended with nausea as well as symptoms of diarrhea with passage of mucus and weight loss. * The patient has failed to respond to PPI Carafate and bland diet * Symptoms suggestive of acute peptic ulcer disease, pancreatitis * Symptoms are also suggestive of possible acute colitis * > 10% weight loss raises concern * Recommended CAT scan of abdomen pelvis and GI consult Plan Treatment plans as of today Admit to medical floor Place patient on IV Protonix Carafate and Maalox IV Dilaudid for moderate to severe pain management IV Zofran for vomiting [place] diet Refer to Dr. Pavithra Polo VTE precautions Update patient The patient and/or family is well informed by me about 1. Clinical impression, treatment plans, side effects of medications, course of the disease and prognosis 2. All patient's question/ concerns raised by patient are satisfactorily addressed by me Total time spent 100 minutes 40% of time spent interviewing the patient and physical exam 30% of time spent in gathering lab datas and imaging studies 30 % of time is spent in patient education Plan discussed with: Patient, Other (Patient's mother) Code Visit Code Visit Total Time (mins): 100 MISTY LAZCANO MD Aug 09, 2025 23:30
[2025-08-09 23:43] VITALS: BP 111/61; PULSE 105; RESP 18; TEMP 97.9; O2SAT 95
[2025-08-10] VITALS (9 sets, daily range): BP systolic 104–122; BP diastolic 61–87; PULSE 87–114; RESP 14–18; TEMP 97.7–98.7; O2SAT 95–99
[2025-08-10] MEDS: D5W/LACTATED RINGERS 1,000 ML IV SCH (01:53)
[2025-08-10] MEDS: SUCRALFATE 1 GM TAB PO SCH (06:04)
[2025-08-10 07:00] LABS: Hematocrit 39.0 % (36.0-46.0); Hemoglobin 13.4 g/dL (12.2-16.2); Mean Corpuscular Hemoglobin 28.8 pg (28.0-32.0); Mean Corpuscular Volume 83.8 fL (80.0-100.0); Nucleated Red Blood Cells % 0.1 %
[2025-08-10 07:07] LABS: Alkaline Phosphatase 59 U/L (46-116); Amylase 53 U/L (30-118); Anion Gap 8 (5-15); BUN/Creatinine Ratio 9.6 (10.0-20.0); Calcium 9.6 mg/dL (8.7-10.4); Carbon Dioxide 26 mmol/L (20-31); Glucose 90 mg/dL (74-106); Magnesium 2.1 mg/dL (1.6-2.6); Potassium 4.1 mmol/L (3.5-5.1); Sodium 142 mmol/L (136-145); Total Protein 6.8 g/dL (5.7-8.2)
[2025-08-10 07:08] LABS: Alanine Aminotransferase < 9 U/L (7-40); Albumin 4.2 g/dL (3.2-4.8); Bilirubin, Total 0.6 mg/dL (0.2-1.0); Blood Urea Nitrogen 8 mg/dL (9-23); Chloride 108 mmol/L (98-107)
[2025-08-10] MEDS: PANTOPRAZOLE 40 MG/10 ML VIAL INJ IV SCH (08:08)
[2025-08-10] MEDS ORDERED: HYDROcodone-ACET 5/325MG TAB PO PRN (09:15)
[2025-08-10 09:29] LABS: Urine Protein, UAD Negative (Negative)
[2025-08-10 10:18] LABS: Amphetamine Screen, Urine Neg (NEGATIVE); Barbiturate Scree,Urine Neg (NEGATIVE); Benzodiazephine Screen, Urine Neg (NEGATIVE); Cannabinoid Screen, Urine Neg (NEGATIVE); Cocaine Screen, Urine Neg (NEGATIVE); Opiate Scree,Urine Neg (NEGATIVE); Phencyclidine Screen, Urine Neg (NEGATIVE)
--- NOTE | 2025-08-10 15:34 | DVHPN2 ---
Progress Note - Dictate Date Seen: Aug 10, 2025 Has the PT tested + for MRSA If YES, has PT been informed?: No Medical Necessity Reason Pt with a Central, PICC or Fol: No Medical Necessity Reason Evaluation of abdominal pains Parenteral analgesia and antiemetics IV hydration Subjective The patient reports to have recurrent epigastric abdominal pains She requires parenteral analgesia She is continued on Protonix, Carafate and Maalox She received lab work and CT abdomen pelvis Results are reviewed with the patient Overnight events are reviewed through medical chart and case discussion with patient's assigned RN while making rounds on patient on the day of service vital signs Vital Sign Date Time Temp Pulse Resp B/P (MAP) Pulse Ox O2 Delivery O2 Flow Rate FiO2 08/10/25 13:00 98.7 99 17 107/67 (80) 97 98.7 08/10/25 08:00 Room Air* 0 21 Total Intake and Output 08/09/25 08/09/25 08/10/25 15:00 23:00 07:00 Intake Total 300 ml Balance 300 ml medications Current Medications Medications Dose Ordered Sig/Kanchan Route Start Time Stop Time Status Last Admin Dose Admin Nitroglycerin 0.4 mg Q5MINP PRN SL 08/09/25 23:15 Morphine Sulfate 2 mg Q30M PRN IV 08/09/25 23:15 Dextrose/Lactated Ringer's 1,000 ml @ 75 mls/hr [id number] IV 08/09/25 23:15 08/10/25 01:53 75 MLS/HR Pantoprazole Sodium 40 mg DAILY IV 08/10/25 10:00 08/10/25 08:08 40 MG Sucralfate 1 gm QIDACHS PO 08/10/25 07:00 08/10/25 11:32 1 GM Acetaminophen/ Hydrocodone Bitart 1 tab Q6HPRN PRN PO 08/10/25 09:15 objective Physical Exam General appearance: Short stature, underweight slim young [place] female Appears alert oriented x3, reports epigastric pains Head: Normocephalic nontraumatic Eyes: EOMI, SU, sclera nonicteric, conjunctive- pale ENT: No congestion, NSL bilateral symmetrical, oral mucosa dry Neck: Supple, carotid upstroke +2, trachea midline, JVD-0 cm, C spine- Full ROM No thyroid or lymph node , no use of sternomastoid muscle Chest: Bilateral symmetrical expansions,No costochondral tenderness Breasts: deferred Lungs: clear breath sounds all over except reduced at bases CVS: PMI-1 cm medial to L MCL in fifth ICS , S1-S2 NSR no S3 GI: Abdomen soft, nonobese, bowel sounds normoactive Epigastric tenderness at R of umbilicus, no rebound tenderness No hepatosplenomegaly, no mass no hernia , : No CVA tenderness, no bladder mass palpable, genitalia-NE SKIN: Turgor normal, color pink, no rash, no icterus, No varicosity, no ulcers or wounds EXTs: No edema, color pink, no rash, no ecchymosis distal pulses +2 capillary refill <2 sec, no open wounds JOINTS: full range of motion BACK: No apparent lumbosacral spinal muscle tenderness, LYMPH NODES: No cervical, axillary or inguinal lymph nodes Neuro: Awake alert oriented 4, coherent, all cognitives- intact No pronator drift, no focal motor deficit, No focal sensory deficit, DTR +2, gait steady PSYCH: Affect mildly depressed-denies suicidal ideation laboratory and microbiology Laboratory Tests 08/10/25 05:47 Test 08/10/25 05:47 Range/Units Serum Glucose 90 74-106 mg/dL ORDERING PHYSICIAN: MISTY LAZCANO MD PROCEDURE(s): [facility] - CT AB PELV W WO CON-ORAL & IV REASON: abdominal pains ORDER NUMBER(s): [id number], ACCESSION NUMBER(s): [id number] EXAM: CT CT AB PELV W WO CON-ORAL IV History: abdominal pains Comparison Study: None TECHNIQUE: Multidetector spiral CT of the abdomen and pelvis was performed from lung bases to pubic symphysis. Initial imaging was done without IV contrast, followed by post contrast images of the abdomen and pelvis. 100 cc of intravenous contrast was administered during this examination. portal venous/arterial/multiphase imaging was obtained. Axial, coronal and sagittal multiplanar reformats were performed by the technologist on a separate workstation. Radiation Dose : CTDI volume is 5.11 mGy. Dose-length product is 483 mGy*cm Patient was injected intravenously with 89 mL of Omnipaque 300 FINDINGS: Lung Bases: No acute or significant lung base finding. Normal heart size. No pleural or pericardial effusion. Liver: The liver is normal in size. No focal lesions. Normal hepatic vascular enhancement. Gallbladder and Biliary Tree: Unremarkable Spleen: Unremarkable Pancreas: The pancreas is normal in appearance without focal lesions or abnormal enhancement. Adrenal Glands: Unremarkable Kidneys: Kidneys demonstrate normal symmetric enhancement without focal lesions, calculi or hydronephrosis. Bladder: Unremarkable Bowel: The stomach is grossly normal in appearance. Small bowel and colon are normal in caliber and distribution. The appendix is not visualized; however, no secondary findings of acute appendicitis identified. Ascites: Absent Lymphadenopathy: No mesenteric, retroperitoneal or periportal lymphadenopathy. Abdominal Wall and Mesentery: Unremarkable. Vasculature: The visualized abdominal aorta is normal in size and caliber. Abdominal and pelvic vessels demonstrate normal enhancement. Pelvic Organs: Unremarkable Musculoskeletal: No aggressive focal bony lesions, acute fractures or dislocation. IMPRESSION: 1. No acute abdominal or pelvic finding. 2. END IMPRESSION: Problem List 1. Worsening of Epigastric abdominal pains a. Suspect Peptic ulcer disease b. Failure to PPI c. Suspect acute pancreatitis 2. Acute Colitis 3. Severe hypovolemia 4. Weight loss > 10% 2' Diagnosis/Comorbidities Anxiety disorder Assessment/Plan Medical decision making Overall patient's condition appears clinically ill from recurrent epigastric abdominal pains attended with nausea as well as symptoms of diarrhea with passage of mucus and weight loss. * The patient has failed to respond to PPI Carafate and bland diet * Symptoms suggestive of acute peptic ulcer disease, pancreatitis * Symptoms are also suggestive of possible acute colitis irritable bowel * > 10% weight loss raises concern * Reviewed CAT scan of abdomen pelvis -unremarkable for acute inflammatory condition * Refer patient to Dr. Pavithra Polo for consideration of upper/lower GI endoscopy Treatment plans as of today Admit to medical floor Place patient on IV Protonix Carafate and Maalox IV Dilaudid for moderate to severe pain management IV Zofran for vomiting [place] diet Refer to Dr. Pavithra Polo VTE precautions Update patient The patient and/or family is well informed by me about 1. Clinical impression, treatment plans, side effects of medications, course of the disease and prognosis 2. All patient's question/ concerns raised by patient are satisfactorily addressed by me Total time spent 45 minutes 40% of time spent interviewing the patient and physical exam 30% of time spent in gathering lab datas and imaging studies 30 % of time is spent in patient education Prognosis Fair Dietary Evaluation Review Recommendations by RD: Dietary education by RD, Increase Calorie Intake Comments: By physical exam patient appears underweight and malnourished She may benefit from protein calorie supplements as tolerated Her ideal weight should be at 125 lbs Expected Outcomes/Goals: Goal is to correct nutritional deficits and weight gain up to 125 lb Plan discussed with: Patient, Other (Patient's mother) Total Time (mins): 45 MISTY LAZCANO MD Aug 10, 2025 15:34
--- NOTE | 2025-08-10 16:33 | DVH ---
EXAM: CT CT AB PELV W WO CON-ORAL IV History: abdominal pains Comparison Study: None TECHNIQUE: Multidetector spiral CT of the abdomen and pelvis was performed from lung bases to pubic symphysis. Initial imaging was done without IV contrast, followed by post contrast images of the abdomen and pelvis. 100 cc of intravenous contrast was administered during this examination. portal kiki ous/arterial/multiphase imaging was obtained. Axial, coronal and sagittal multiplanar reformats were performed by the technologist on a separate workstation. Radiation Dose : CTDI volume is 5.11 mGy. Dose-length product is 483 mGy*cm Patient was injected intravenously with 89 mL of Omnipaque 300 FINDINGS: Lung Bases: No acute or significant lung base finding. Normal heart size. No pleural or pericardial effusion. Liver: The liver is normal in size. No focal lesions. Normal hepatic vascular enhancement. Gallbladder and Biliary Tree: Unremarkable Spleen: Unremarkable Pancreas: The pancreas is normal in appearance without focal lesions or abnormal enhancement. Adrenal Glands: Unremarkable Kidneys: Kidneys demonstrate normal symmetric enhancement without focal lesions, calculi or hydronephrosis. Bladder: Unremarkable Bowel: The stomach is grossly normal in appearance. Small bowel and colon are normal in caliber and distribution. The appendix is not visualized; however, no secondary findings of acute appendicitis identified. Ascites: Absent Lymphadenopathy: No mesenteric, retroperitoneal or periportal lymphadenopathy. Abdominal Wall and Mesentery: Unremarkable. Vasculature: The visualized abdominal aorta is normal in size and caliber. Abdominal and pelvic vessels demonstrate normal enhancement. Pelvic Organs: Unremarkable Musculoskeletal: No aggressive focal bony lesions, acute fractures or dislocation. IMPRESSION: 1. No acute abdominal or pelvic finding. 2. END IMPRESSION:
[2025-08-10] MEDS ORDERED: HYDROmorphone HCL 2 MG/ML VL/or syr IV PRN ×2 (18:30)
[2025-08-10] MEDS: LORazepam 0.5 MG TAB PO PRN (21:52)
[2025-08-11] VITALS (7 sets, daily range): BP systolic 101–134; BP diastolic 56–76; PULSE 68–114; RESP 14–18; TEMP 97.7–98.5; O2SAT 96–99
[2025-08-11 07:36] LABS: Hematocrit 39.4 % (36.0-46.0); Hemoglobin 13.6 g/dL (12.2-16.2); Mean Corpuscular Hemoglobin 28.8 pg (28.0-32.0); Mean Corpuscular Volume 83.6 fL (80.0-100.0); Nucleated Red Blood Cells % 0.0 %
[2025-08-11 07:50] LABS: Albumin 4.3 g/dL (3.2-4.8); Alkaline Phosphatase 60 U/L (46-116); Anion Gap 9 (5-15); BUN/Creatinine Ratio 7.7 (10.0-20.0); Bilirubin, Total 0.7 mg/dL (0.2-1.0); Calcium 9.8 mg/dL (8.7-10.4); Carbon Dioxide 23 mmol/L (20-31); Glucose 89 mg/dL (74-106); Potassium 3.8 mmol/L (3.5-5.1); Sodium 141 mmol/L (136-145); Total Protein 6.9 g/dL (5.7-8.2)
[2025-08-11 07:59] LABS: Alanine Aminotransferase 12 U/L (7-40); Blood Urea Nitrogen 6 mg/dL (9-23); Chloride 109 mmol/L (98-107)
[2025-08-11 10:20] LABS: Hepatitis B Surface Antigen Negative (Negative); Hepatitis C Antibody Negative (Negative)
[2025-08-11] MEDS: PANTOPRAZOLE 40 MG/10 ML VIAL INJ IV SCH (10:35)
[2025-08-11] MEDS: D5W/LACTATED RINGERS 1,000 ML IV SCH (10:35)
--- NOTE | 2025-08-11 10:44 | DVHPN2 ---
Progress Note - Dictate Date Seen: Aug 11, 2025 Has the PT tested + for MRSA If YES, has PT been informed?: No Medical Necessity Reason Pt with a Central, PICC or Fol: No Medical Necessity Reason Evaluation of epigastric Abdominal pains and nausea Subjective The patient reports to have recurrent epigastric abdominal pains She is continued on IV Protonix, Carafate and parenteral analgesia She received lab work and CT abdomen pelvis -which are normal The patient is referred to Dr. Pavithra Polo, sql manager Discussed the case with her Overnight events are reviewed through medical chart and case discussion with patient's assigned RN while making rounds on patient on the day of service vital signs Vital Sign Date Time Temp Pulse Resp B/P (MAP) Pulse Ox O2 Delivery O2 Flow Rate FiO2 08/11/25 09:00 98.3 68 14 134/56 (82) 96 98.3 08/10/25 20:00 Room Air* 0 21 Total Intake and Output 08/10/25 08/10/25 08/11/25 15:00 23:00 07:00 Intake Total 240 ml 780 ml Balance 240 ml 780 ml medications Current Medications Medications Dose Ordered Sig/Kan[place] Route Start Time Stop Time Status Last Admin Dose Admin Nitroglycerin 0.4 mg Q5MINP PRN SL 08/09/25 23:15 Morphine Sulfate 2 mg Q30M PRN IV 08/09/25 23:15 Dextrose/Lactated Ringer's 1,000 ml @ 75 mls/hr [id number] IV 08/09/25 23:15 08/10/25 12:35 75 MLS/HR Pantoprazole Sodium 40 mg DAILY IV 08/10/25 10:00 08/10/25 08:08 40 MG Sucralfate 1 gm QIDACHS PO 08/10/25 07:00 08/11/25 05:50 1 GM Acetaminophen/ Hydrocodone Bitart 1 tab Q6HPRN PRN PO 08/10/25 09:15 Hold Hydromorphone HCl 0.2 mg Q3HP PRN IV 08/10/25 18:30 Hydromorphone HCl 0.4 mg Q3HPRN PRN IV 08/10/25 18:30 Lorazepam 0.5 mg Q12HP PRN PO 08/10/25 18:45 08/10/25 21:52 0.5 MG objective Physical Exam General appearance: Short stature, underweight slim young [place] female Appears alert oriented x3, reports epigastric pains Head: Normocephalic nontraumatic Eyes: EOMI, SU, sclera nonicteric, conjunctive- pale ENT: No congestion, NSL bilateral symmetrical, oral mucosa dry Neck: Supple, carotid upstroke +2, trachea midline, JVD-0 cm, C spine- Full ROM No thyroid or lymph node , no use of sternomastoid muscle Chest: Bilateral symmetrical expansions,No costochondral tenderness Breasts: deferred Lungs: clear breath sounds all over except reduced at bases CVS: PMI-1 cm medial to L MCL in fifth ICS , S1-S2 NSR no S3 GI: Abdomen soft, nonobese, bowel sounds normoactive Epigastric tenderness at R of umbilicus, no rebound tenderness No hepatosplenomegaly, no mass no hernia , : No CVA tenderness, no bladder mass palpable, genitalia-NE SKIN: Turgor normal, color pink, no rash, no icterus, No varicosity, no ulcers or wounds EXTs: No edema, color pink, no rash, no ecchymosis distal pulses +2 capillary refill <2 sec, no open wounds JOINTS: full range of motion BACK: No apparent lumbosacral spinal muscle tenderness, LYMPH NODES: No cervical, axillary or inguinal lymph nodes Neuro: Awake alert oriented 4, coherent, all cognitives- intact No pronator drift, no focal motor deficit, No focal sensory deficit, DTR +2, gait steady PSYCH: Affect mildly depressed-denies suicidal ideation laboratory and microbiology Laboratory Tests 08/11/25 07:05 Test 08/11/25 07:05 Range/Units Serum Glucose 89 74-106 mg/dL Problem List 1. Worsening of Epigastric abdominal pains a. Suspect Peptic ulcer disease b. Failure to PPI c. acute pancreatitis- Ruled out 2. Acute Colitis 3. Severe hypovolemia 4. Weight loss > 10% 2' Diagnosis/Comorbidities Anxiety disorder Assessment/Plan Medical decision making Overall patient's condition appears clinically ill from recurrent epigastric abdominal pains attended with nausea as well as symptoms of diarrhea with passage of mucus and weight loss > 10% * The patient has failed to respond to PPI Carafate and bland diet * Symptoms suggestive of acute peptic ulcer disease, * Symptoms are also suggestive of possible acute colitis Vs irritable bowel * > 10% weight loss raises concern * Reviewed CAT scan of abdomen pelvis -unremarkable for acute inflammatory condition * Referred patient to Dr. Pavithra Polo-case is discussed with her * Patient is attended by Holly Miguel will schedule patient for upper GI endoscopy by morning * Her labs are reviewed. IV fluid rate is adjusted to 60 mL/hour Treatment plans as of today Admit to medical floor Adjust IV fluid 60 mL/hour Increase dose of IV Protonix q.12 Carafate and Maalox IV Dilaudid for moderate to severe pain management IV Zofran for vomiting [place] diet Referred to Dr. Pavithra Polo-notified and case is discussed Noted input of Ms. Holly Miguel VTE precautions Update patient The patient and/or family is well informed by me about 1. Clinical impression, treatment plans, side effects of medications, course of the disease and prognosis 2. All patient's question/ concerns raised by patient are satisfactorily addressed by me Total time spent 45 minutes 40% of time spent interviewing the patient and physical exam 30% of time spent in gathering lab datas and imaging studies 30 % of time is spent in patient education Prognosis Fair to good Dietary Evaluation Review Recommendations by RD: Dietary education by RD, Increase Calorie Intake Comments: By physical exam patient appears underweight and malnourished She may benefit from protein calorie supplements as tolerated Her ideal weight should be at 125 lbs Expected Outcomes/Goals: Goal is to correct nutritional deficits and weight gain up to 125 lb Plan discussed with: Patient, Other (Her parents ) Total Time (mins): 45 MISTY LAZCANO MD Aug 11, 2025 10:44
[2025-08-11] MEDS: OMNIPAQUE 12mg/ml 500ml ORAL SOLUTION PO ONE (12:00)
[2025-08-11] MEDS: IOHEXOL 300 MG/ML 100ML BOTTLE IJ ONE ×2 (12:00→12:01)
--- NOTE | 2025-08-11 13:30 | DVHINCON2 ---
GI Consult Consult Note GI consult note Date of Consultation: 08/11/2025 Chief Complaint: Epigastric abdominal pain and diarrhea Referring Physician: Dr. Silva H&P: 24-year-old female with recent diagnosis of anxiety disorder is admitted with abdominal pain with nausea on and off for the past six weeks, has been getting worse for the past one-week. Pain is worse after eating meals and describes as a burning and gnawing pain. No vomiting or hematemesis. Patient complains of GERD symptoms for the past six weeks Patient also complaining of loose stool for the past 1-2 weeks about three episodes per day. No melena or red blood in stool. No fevers but admits to having chills. Patient has weight loss of about 15 lb due to symptoms above. Patient has been tried on bland diet, Protonix, Carafate which does not seem to help with her symptoms. No EGD or colonoscopy in past Past Medical History: Anxiety disorder Past Surgical History: Denies Social History: NO smoking, drinking ETOH and use of illegal drugs. Family History: Noncontributory Review of Systems: Constitutional: no fever, chill, weight loss HEENT: no eye pain, no hearing loss, no oral lesion, no scleral icterus Heart: no chest pain, no chest pressure Lung: no cough, no dyspnea with exertion Abdomen: see HPI Physical exam: General: NAD, AAOX3 Chest: lung blackburn clear to auscultation Heart: RRR, no murmur Abdomen: non-distended,+ epigastric tenderness to palpation, +BS Labs: Labs Test 08/11/25 07:05 08/10/25 09:13 08/10/25 08:41 08/10/25 05:47 Range/Units White Blood Count 6.0 4.4-10.8 10^3/uL Red Blood Count 4.72 4.0-5.20 10^6/uL Hemoglobin 13.6 12.2-16.2 g/dL Hematocrit 39.4 36.0-46.0 % Mean Corpuscular Volume 83.6 80.0-100.0 fL Mean Corpuscular Hemoglobin 28.8 28.0-32.0 pg Mean Corpuscular Hemoglobin Concent 34.4 32.0-36.0 g/dL Red Cell Distribution Width 12.5 11.8-14.3 % Platelet Count 241 140-450 10^3/uL Mean Platelet Volume 6.8 L 6.9-10.8 fL Neutrophils (%) (Auto) 56.9 37.0-80.0 % Lymphocytes (%) (Auto) 33.9 10.0-50.0 % Monocytes (%) (Auto) 7.0 0.0-12.0 % Eosinophils (%) (Auto) 1.7 0.0-7.0 % Basophils (%) (Auto) 0.5 0.0-2.0 % Neutrophils # (Auto) 3.4 1.6-8.6 10 ^3/uL Lymphocytes # (Auto) 2.0 0.4-5.4 10 ^3/uL Monocytes # (Auto) 0.4 0-1.3 10 ^3/uL Eosinophils # (Auto) 0.1 0-0.8 10 ^3/uL Basophils # (Auto) 0 0-0.2 10 ^3/uL Nucleated Red Blood Cells 0.0 % Sodium Level 141 136-145 mmol/L Potassium Level 3.8 3.5-5.1 mmol/L Chloride Level 109 H 98-107 mmol/L Carbon Dioxide Level 23 20-31 mmol/L Anion Gap 9 5-15 Blood Urea Nitrogen 6 L 9-23 mg/dL Creatinine 0.78 0.550-1.02 mg/dL Glomerular Filtration Rate Calc 110 >90 mL/min BUN/Creatinine Ratio 7.7 L 10.0-20.0 Serum Glucose 89 74-106 mg/dL Calcium Level 9.8 8.7-10.4 mg/dL Total Bilirubin 0.7 0.2-1.0 mg/dL Aspartate Amino Transferase (AST) 15 13-40 U/L Alanine Aminotransferase (ALT) 12 7-40 U/L Alkaline Phosphatase 60 46-116 U/L Total Protein 6.9 5.7-8.2 g/dL Albumin 4.3 3.2-4.8 g/dL Urine Color Light-yellow Yellow Urine Clarity Clear Clear Urine pH 6.5 5.0-9.0 Urine Specific [place] 1.010 1.001-1.035 Urine Protein Negative Negative Urine Ketones Negative Negative Urine Blood Negative Negative /uL Urine Nitrite Negative Negative Urine Bilirubin Negative Negative Urine Urobilinogen Normal Negative mg/dL Urine Leukocyte Esterase Negative Negative /uL Urine RBC <1 0 - 4 /hpf Urine Microscopic WBC 0-5 /HPF Urine Squamous Epithelial Cells Few <5 /hpf Urine Bacteria None seen None Seen /hpf Urine Glucose Normal Normal mg/dL Urine Test Negative Negative Urine Opiates Screen Neg NEGATIVE Urine Fentanyl Screen Neg NEGATIVE Urine Barbiturates Screen Neg NEGATIVE Urine Phencyclidine Screen Neg NEGATIVE Urine Amphetamines Screen Neg NEGATIVE Urine Benzodiazepines Screen Neg NEGATIVE Urine Cocaine Screen Neg NEGATIVE Urine Cannabinoids Screen Neg NEGATIVE Stool Occult Blood Negative Negative Stool Occult Blood Sample #3 Negative Stool for White Cells None seen Phosphorus Level 4.0 2.4-5.1 mg/dL Magnesium Level 2.1 1.6-2.6 mg/dL Amylase Level 53 30-118 U/L Hepatitis B Surface Antigen Negative Negative Hepatitis C Antibody Negative Negative Microbiology Date/Time Source Procedure Growth Status 08/10/25 08:41 Stool Stool Culture - Preliminary Resulted 08/10/25 08:41 Stool Shiga Toxin I & II - Final Resulted Imaging: CT abdomen pelvis IMPRESSION: 1. No acute abdominal or pelvic finding. Assessment: Epigastric abdominal pain History of GERD Diarrhea Plan: Discussed with Dr. Polo - Pt will be scheduled for an EGD tomorrow 08/12/2025. Pt was informed of the risks (bleeding, infection, perforation, reaction to sedation medications and cardiopulmonary arrest) and benefit and is agreeable to undergo the procedures. Stool for WBC, stool culture Outpatient recommendation for stool fecal elastase Full liquid diet Thank you for this consult Date of Service: Aug 11, 2025 Billing Provider: CHRISTINA ROLAND Common Visit Codes: CONSULT ONLY Consultation Codes: [id number] CONSULT <60MIN CHRISTINA ROLAND Aug 11, 2025 13:30
[2025-08-11] MEDS ORDERED: MAALOX PLUS or MAALOX 30 ML PO PRN (19:00)
[2025-08-12 01:00] VITALS: BP 121/73; PULSE 96; RESP 18; TEMP 97.7; O2SAT 96
[2025-08-12 08:00] VITALS: RESP 17
[2025-08-12] MEDS: D5W/LACTATED RINGERS 1,000 ML IV SCH (08:30)
[2025-08-12] MEDS ORDERED: HYDROmorphone HCL 2 MG/ML VL/or syr IV PRN ×2 (08:30)
[2025-08-12 09:00] VITALS: BP 101/68; PULSE 118; RESP 16; TEMP 98.3; O2SAT 98
[2025-08-12 09:46] LABS: Potassium 4.3 mmol/L (3.5-5.1); Sodium 141 mmol/L (136-145)
[2025-08-12 09:47] LABS: Anion Gap 7 (5-15); Carbon Dioxide 26 mmol/L (20-31)
[2025-08-12 09:48] LABS: Calcium 9.8 mg/dL (8.7-10.4)
[2025-08-12 09:52] LABS: Glucose 85 mg/dL (74-106)
[2025-08-12 09:53] LABS: BUN/Creatinine Ratio 7.2 (10.0-20.0); Blood Urea Nitrogen 7 mg/dL (9-23); Chloride 108 mmol/L (98-107)
[2025-08-12 09:55] LABS: INR 1.04 (0.9-1.15); Partial Thromboplastin Time 29.5 SEC (24.5-34.5); Prothrombin Time 11.0 sec (9.3-11.8)
[2025-08-12] MEDS ORDERED: MIDAZOLAM HCL 2MG/2ML 2ml VIAL (1mg/ml) ONE (12:21)
[2025-08-12] MEDS ORDERED: fentaNYL CITRATE 100 MCG/2 ML VL ONE (12:21)
[2025-08-12] MEDS ORDERED: ONDANSETRON HCL 4 MG/2 ML VIAL ONE (12:21)
[2025-08-12] MEDS ORDERED: PROPOFOL 10 MG/ML 20 ML IV ONE (12:21)
[2025-08-12] MEDS ORDERED: LIDOCAINE 2% (LOCAL ANESTH.) PF 5ml SDV ONE (12:21)
[2025-08-12 12:45] VITALS: PULSE 90; RESP 12; O2SAT 98
--- NOTE | 2025-08-12 12:50 | DVHOP2 ---
Operative Report DATE OF OPERATION: 08/12/25 PROCEDURE: Upper Endoscopy with biopsy. PREOPERATIVE INDICATION: The patient is a 24 -year-old female undergoing endoscopy for epigastric pain POSTOPERATIVE DIAGNOSES: 1. 0.5 cm sliding-type hiatal hernia with slightly irregular squamocolumnar junction no significant erosive esophagitis 2. Minimal gastritis otherwise normal examination up to the 2nd and 3rd part of the duodenum PROCEDURE PERFORMED BY: Indira Polo GI NURSE: Jazmín SCOPE: Olympus videoendoscope. ASA CLASS: 2 PREOPERATIVE MEDICATIONS: Mac renetta, Dr. Yates PROCEDURE IN DETAIL: After obtaining an informed consent, the patient was placed on left lateral decubitus position. The patient was then sedated with the above medications. A bite block was placed between her teeth. The endoscope was then passed through the oropharynx, into the esophagus, and through the stomach and pylorus up to the second and third part of the duodenum. The endoscope was then withdrawn. The 2nd and 3rd part of the duodenum and the duodenal bulb were normal. Duodenal biopsies were obtained The pre-pyloric area antrum and body of the stomach showed minimal gastritis. T here was some minimal hyperemia. On retroflexion the fundus and cardia were normal. Gastric biopsies were obtained. The endoscope was then withdrawn into the distal esophagus. Patient had a 5 mm extension of columnar epithelium into the distal esophagus GE junction biopsies were obtained. There was no significant erosive esophagitis. The remaining distal and proximal esophagus and oropharynx were unremarkable The patient tolerated the procedure well without difficulty. COMPLICATIONS : None SPECIMENS: Duodenal biopsies Gastric biopsies GE junction biopsies DISPOSITION: Transfer back to the floor Stable PLAN: 1. Await for biopsy result 2. Protonix 40 mg p.o. daily 3. Carafate 1 g p.o. q.h.s. 4. Resume GI soft diet advance as tolerated 5. Outpatient follow up with me in 2-4 weeks to review results and discuss further management INDIRA POLO MD Aug 12, 2025 12:50
[2025-08-12 13:00] VITALS: BP 112/61; PULSE 82; RESP 16; TEMP 98.5; O2SAT 98
--- NOTE | 2025-08-12 16:00 | DVHPN2 ---
Progress Note - Dictate Date Seen: Aug 12, 2025 Has the PT tested + for MRSA If YES, has PT been informed?: No Medical Necessity Reason Pt with a Central, PICC or Fol: No Medical Necessity Reason EGD evaluation Management of epigastric pains/nausea Subjective The patient reports to have recurrent epigastric abdominal pains/nausea She is continued on IV Protonix, Carafate, IV Zofran and parenteral analgesia She is scheduled to receive EGD exam by Dr. Pavithra Polo this afternoon Risks benefits complications of procedure are well discussed with the patient and her father. Patient gave us informed consent Overnight events are reviewed through medical chart and case discussion with patient's assigned RN while making rounds on patient on the day of service vital signs Vital Sign Date Time Temp Pulse Resp B/P (MAP) Pulse Ox O2 Delivery O2 Flow Rate FiO2 08/12/25 13:30 94 16 117/74 (88) 100 08/12/25 13:00 98.5 98.5 08/12/25 12:45 Room Air 0 08/12/25 12:45 98 Total Intake and Output 08/11/25 08/11/25 08/12/25 15:00 23:00 07:00 Intake Total 800 ml 500 ml Balance 800 ml 500 ml medications Current Medications Medications Dose Ordered Sig/[place] Route Start Time Stop Time Status Last Admin Dose Admin Nitroglycerin 0.4 mg Q5MINP PRN SL 08/09/25 23:15 Sucralfate 1 gm QIDACHS PO 08/10/25 07:00 08/12/25 12:02 1 GM Acetaminophen/ Hydrocodone Bitart 1 tab Q6HPRN PRN PO 08/10/25 09:15 Hold Lorazepam 0.5 mg Q12HP PRN PO 08/10/25 18:45 08/11/25 21:29 0.5 MG Pantoprazole Sodium 40 mg BID IV 08/11/25 10:15 08/12/25 09:51 40 MG Al Hydrox/Mg Hydrox/Simethicone 15 ml Q6HR PRN PO 08/11/25 19:00 Dextrose/Lactated Ringer's 1,000 ml @ 75 mls/hr [id number] IV 08/12/25 08:30 Hydromorphone HCl 0.2 mg Q3HP PRN IV 08/12/25 08:30 Hydromorphone HCl 0.4 mg Q3HPRN PRN IV 08/12/25 08:30 objective Physical Exam General appearance: Short stature, underweight slim young [place] female Appears alert oriented x3, reports epigastric pains Head: Normocephalic nontraumatic Eyes: EOMI, SU, sclera nonicteric, conjunctive- pale ENT: No congestion, NSL bilateral symmetrical, oral mucosa wet Neck: Supple, carotid upstroke +2, trachea midline, JVD-0 cm, C spine- Full ROM No thyroid or lymph node , no use of sternomastoid muscle Chest: Bilateral symmetrical expansions,No costochondral tenderness Breasts: deferred Lungs: clear breath sounds all over except reduced at bases CVS: PMI-1 cm medial to L MCL in fifth ICS , S1-S2 NSR no S3 GI: Abdomen soft, nonobese, bowel sounds normoactive Epigastric tenderness at R of umbilicus- mild, no rebound tenderness No hepatosplenomegaly, no mass no hernia , : No CVA tenderness, no bladder mass palpable, genitalia-NE SKIN: Turgor normal, color pink, no rash, no icterus, No varicosity, no ulcers or wounds EXTs: No edema, color pink, no rash, no ecchymosis distal pulses +2 capillary refill <2 sec, no open wounds JOINTS: full range of motion BACK: No apparent lumbosacral spinal muscle tenderness, LYMPH NODES: No cervical, axillary or inguinal lymph nodes Neuro: Awake alert oriented 4, coherent, all cognitives- intact No pronator drift, no focal motor deficit, No focal sensory deficit, DTR +2, gait steady PSYCH: Affect mildly depressed-denies suicidal ideation laboratory and microbiology Laboratory Tests 08/12/25 09:15 08/11/25 07:05 Test 08/12/25 09:15 Range/Units Serum Glucose 85 74-106 mg/dL Operative Report DATE OF OPERATION: 08/12/25 PROCEDURE: Upper Endoscopy with biopsy. PREOPERATIVE INDICATION: The patient is a 24 -year-old female undergoing endoscopy for epigastric pain POSTOPERATIVE DIAGNOSES: 1. 0.5 cm sliding-type hiatal hernia with slightly irregular squamocolumnar junction no significant erosive esophagitis 2. Minimal gastritis otherwise normal examination up to the 2nd and 3rd part of the duodenum PROCEDURE PERFORMED BY: Lena Polo GI NURSE: Jazmín SCOPE: Olympus videoendoscope. ASA CLASS: 2 PREOPERATIVE MEDICATIONS: Mac sedation, Dr. Yates PROCEDURE IN DETAIL: After obtaining an informed consent, the patient was placed on left lateral decubitus position. The patient was then sedated with the above medications. A bite block was placed between her teeth. The endoscope was then passed through the oropharynx, into the esophagus, and through the stomach and pylorus up to the second and third part of the duodenum. The endoscope was then withdrawn. The 2nd and 3rd part of the duodenum and the duodenal bulb were normal. Duodenal biopsies were obtained The pre-pyloric area antrum and body of the stomach showed minimal gastritis. There was some minimal hyperemia. On retroflexion the fundus and cardia were normal. Gastric biopsies were obtained. The endoscope was then withdrawn into the distal esophagus. Patient had a 5 mm extension of columnar epithelium into the distal esophagus GE junction biopsies were obtained. There was no significant erosive esophagitis. The remaining distal and proximal esophagus and oropharynx were unremarkable The patient tolerated the procedure well without difficulty. COMPLICATIONS : None Problem List 1. Worsening of Epigastric abdominal pains a. GE reflux and hiatal hernia b. Minimal gastritis c. Peptic ulcer disease-ruled out d. acute pancreatitis- Ruled out 2. Acute Colitis 3. Severe hypovolemia.............................................. Corrected 4. Weight loss > 10% 2' Diagnosis/Comorbidities Anxiety disorder Assessment/Plan Medical decision making Overall patient's condition appears clinically improving from recurrent epigastric abdominal pains attended with nausea as well as symptoms of diarrhea with passage of mucus and weight loss > 10% * She has failed to respond to PPI Carafate and bland diet * The patient received uneventful EGD exam by Dr. Pavithra Polo which showed hiatal hernia and minimal gastritis but no peptic ulcer No sign of active upper GI bleeding * Symptoms are also suggestive of possible acute colitis Vs irritable bowel * > 10% weight loss raises concern * Reviewed CAT scan of abdomen pelvis -unremarkable for acute inflammatory condition * Her labs are reviewed. IV fluid rate is adjusted to 60 mL/hour Treatment plans as of today Continue observation on medical floor with telemetry Adjust IV fluid 75 mL/hour Switch to oral Protonix q.12 Carafate and Maalox Discontinue IV Dilaudid for moderate to severe pain management Discontinue IV Zofran for vomiting [place] diet Case is discussed with Dr. Pavithra Polo-consensus is to discharge patient home today Recommended strict bland diet Update patient The patient and/or family is well informed by me about 1. Clinical impression, treatment plans, side effects of medications, course of the disease and prognosis 2. All patient's question/ concerns raised by patient are satisfactorily addressed by me Total time spent 60 minutes 40% of time spent interviewing the patient and physical exam 30% of time spent in gathering lab datas and imaging studies 30 % of time is spent in patient education Prognosis Excellent Dietary Evaluation Review Recommendations by RD: Dietary education by RD, Increase Calorie Intake Comments: By physical exam patient appears underweight and malnourished She may benefit from protein calorie supplements as tolerated Her ideal weight should be at 125 lbs Expected Outcomes/Goals: Goal is to correct nutritional deficits and weight gain up to 125 lb Plan discussed with: Patient, Other (Parents about outpatient treatment plans, strictly following diet and medication, strictly following regular sleep hours and appropriately use cell phone) Total Time (mins): 60 MISTY LAZCANO MD Aug 12, 2025 16:00
[2025-08-12] MEDS ORDERED: GICOCKTAIL PO (16:02)
[2025-08-12] MEDS ORDERED: SUCR1TAB PO (16:02)
[2025-08-12 16:48] VITALS: BP 100/70; PULSE 91; RESP 16; TEMP 98; O2SAT 95
[2025-08-12] MEDS ORDERED: GLYCOPYRROLATE 0.2 MG/ML 1ML VIAL IV ONE (17:19)
== END 2025-08-12 17:20 | disposition home or self-care (01) | DRG 243 ==
LOC: EAST 23:07
PROVIDERS: ADMIT Specialist; ATTEND Specialist
PROC: 0DB68ZX Excision of Stomach, Via Natural or Artificial Opening Endoscopic, Diagnostic (ICD-10-PCS; 2025-08-12)
PROC: 0DB48ZX Excision of Esophagogastric Junction, Via Natural or Artificial Opening Endoscopic, Diagnostic (ICD-10-PCS; 2025-08-12)
PROC: 0DB98ZX Excision of Duodenum, Via Natural or Artificial Opening Endoscopic, Diagnostic (ICD-10-PCS; principal; 2025-08-12 12:29)
DX: K21.9 Gastro-esophageal reflux disease without esophagitis (principal); E86.1 Hypovolemia; F32.A Depression, unspecified; I10 Essential (primary) hypertension; R63.4 Abnormal weight loss; K44.9 Diaphragmatic hernia without obstruction or gangrene; K29.70 Gastritis, unspecified, without bleeding; K52.9 Noninfective gastroenteritis and colitis, unspecified; Z68.1 Body mass index [BMI] 19.9 or less, adult; F41.9 Anxiety disorder, unspecified; Z82.49 Family history of ischemic heart disease and other diseases of the circulatory system; Z79.899 Other long term (current) drug therapy
CPT/HCPCS: 36415; 43239; 74178; 80048; 80053; 80307; 81001; 81025; 82150; 82270; 83735; 84100; 85025; 85048; 85610; 85730; 86141; 86803; 87045; 87340; 87427; G0378; J2003; J2250; J2405; J2470; J2704